=== PATIENT | female | born 1945 | race Caucasian/White ===

== ENCOUNTER 2017-03-19 16:15 | Emergency (ER) | payer MEDICARE ==
[~2017-03-19] VITALS: Wt 88.0 kg
[~2017-03-19 16:15] MED LIST: ASPIRIN81 M1 PO; BAYER ASPIRIN C81 MG PO; CIPRO500 MG PO; COZAAR50 M1 PO; Carafate1 GM/10 ML PO; GABAPENTIN600 MG PO; LANTUS100 U/ML SC; LOPRESSOR25 MG PO; METFORMIN1000 MG PO; PANTOPRAZOLE SO40 MG PO; PRANDIN2 MG PO; PROTONIX40 MG PO; RESTORIL30 M1 PO; TRAMADOL HCL50 MG PO; VICODIN 5-3001 EACH PO; VITAMIN B-12100 MCG PO; ZOFRAN4 MG PO
[2017-03-19] MEDS ORDERED: ELIQUIS5 M1 PO (16:32)
[2017-03-19] MEDS ORDERED: lantus insulin SQ (16:32)
== END 2017-03-19 17:53 | disposition home or self-care (01) ==
LOC: ED 16:15
DX: Z76.0 Encounter for issue of repeat prescription (principal); Z79.899 Other long term (current) drug therapy; Z88.6 Allergy status to analgesic agent

== ENCOUNTER 2017-08-31 14:54 | Inpatient (IN) | payer MEDICARE ==
[~2017-08-31] VITALS: Ht 149.9 cm; Wt 89.1 kg
--- NOTE | ~2017-08-31 | PR ---
[place], [place] PROGRESS NOTE NAME: HAYLEE EMMANUEL [facility] #: [id number] UNIT #: [id number] ROOM: 415 DOCTOR: ANASTASIYA YUEN MD BIRTHDATE: [birth year] DOS: 09/02/2017 SUBJECTIVE: The patient was seen at her bedside in the intensive care unit today 09/02/2017 for followup of her multivessel coronary artery disease with distal occlusive disease, chronic coronary ischemia, and permanent atrial fibrillation, status post ablation and pacemaker insertion. She had catheterizations in April 2016 and 07/10/2017. Both found distal 3-vessel coronary artery disease, which was felt best treated medically. She presented to the hospital on this occasion with weakness, urinary infection and hypotension. She has had intermittent chest discomfort during the hospitalization. Troponins did not elevate. PHYSICAL EXAMINATION: VITAL SIGNS: Today, her pulse is 75 and regular (paced rhythm). Blood pressure is 114/62. She is afebrile. NECK: Supple. She has no jugular distention. CHEST: Has decreased breath sounds at the bases, but otherwise clear. HEART: Has a regular rhythm. She has no gallops. She has a grade 3/6 systolic murmur along the left sternal border, it is low pitched and somewhat musical. She also has a grade 2/6 systolic ejection murmur along the left sternal border radiating toward the base. There are no diastolic murmurs. EXTREMITIES: Showed 1+ edema bilaterally. She has diuresed fairly well in the last 24 hours and is negative 2 liters fluid balance. LABORATORY DATA: Her hemoglobin is dropping. It was 9.1 on August 31, 8.8 on September 01 and 8.4 on September 02. Sodium is 138, potassium 4.5, BUN 48, creatinine 1.71. IMPRESSION: 1. Admission with weakness and urinary sepsis. 2. History of coronary artery disease. The patient has distal disease, which would not be amenable to revascularization and felt best treated medically. 3. Permanent atrial fibrillation. 4. Status post AV jennifer ablation and pacemaker placement for rate control. 5. Gastritis. 6. History of transient ischemic attack. 7. Type 2 diabetes mellitus. 8. Chronic renal insufficiency. 9. Anemia due to blood loss, complicated by anticoagulation therapy. PLAN: The patient should be on long-term anticoagulation therapy for stroke prophylaxis, especially given her history of transient ischemic attacks. I have discussed transfusion with the hospitalist service. I am concerned that if we do not transfuse her, she could become ischemic based on her anemia. On the other hand, I do want her to be started back on her blood thinner. We will be reinitiating Eliquis therapy and follow her carefully. I thank the hospitalist physicians for asking our advice regarding her care. [place], [place] PROGRESS NOTE NAME: HAYLEE EMMANUEL UNIT #: [id number] ROOM: [facility] DOCTOR: ANASTASIYA YUEN MD BIRTHDATE: [birth year] ANASTASIYA YUEN MD CM:PNTRANS [id number] ANASTASIYA YUEN MD 09/15/17 0704 interface
--- NOTE | ~2017-08-31 | PR ---
[place], [place] PROGRESS NOTE [id number] UN[facility] #: [id number] ROOM: 415 DOCTOR: ANASTASIYA YUEN MD BIRTHDATE: [birth year] DOS: 09/03/2017 SUBJECTIVE: The patient was seen at her bedside today, 09/03/2017 for Cardiology followup of her multivessel coronary artery disease with distal occlusive disease, chronic coronary ischemia and permanent atrial fibrillation status post ablation and pacemaker insertion. The patient was transferred out of the Intensive Care Unit. She was given a unit of packed cells yesterday and tells me that she does feel better today, although she states she got a migraine during the transfusion. She denies shortness of breath or chest discomfort. She has been started back on a direct oral anticoagulant for stroke prophylaxis. PHYSICAL EXAMINATION: VITAL SIGNS: Today, her pulse is 75 and regular, blood pressure 142/58. She is afebrile. She weighs 94.1 kg and has a body mass index of 41.9. HEENT: Normocephalic, atraumatic. Extraocular muscles are intact. NECK: Supple. She has no jugular distention. She has mild hepatojugular reflux. Carotids are full. LUNGS: Respirations are unlabored. She has decreased breath sounds at the bases, but her lungs are otherwise clear. HEART: Has a regular rhythm without gallops. She has a grade 3/6 systolic murmur along the left sternal border. It is low pitched and somewhat musical. She also has a grade 2/6 systolic ejection murmur along the left sternal border radiating towards the base. There are no diastolic murmurs. EXTREMITIES: Showed trace edema bilaterally. LABORATORY DATA: Hemoglobin today was 10.0 with a white count is 6700, platelet count 292,000. Sodium 138, potassium 3.7, BUN 30 and creatinine 1.06, which is a significant improvement from the previous day. IMPRESSION: 1. Admission with weakness and urinary sepsis. 2. History of coronary artery disease. The patient is noted to have multivessel distal disease, which is not amenable to revascularization and is being treated medically. 3. Permanent atrial fibrillation. 4. Status post AV jennifer ablation and pacemaker placement for rate control. 5. Gastritis. 6. History of transient ischemic attack. 7. Type 2 diabetes mellitus. 8. Chronic renal insufficiency. 9. Blood loss anemia, which is complicated by anticoagulation therapy. PLAN: The patient will be observed in the hospital for falling blood counts since she has been placed back on oral anticoagulant. We will continue to monitor her fluid status, but she does seem to be doing better from a cardiac standpoint. We thank the hospitalist physicians for asking our advice regarding her care. [place], [place] PROGRESS NOTE NAME: HAYLEE EMMANUEL UNIT #: [id number] ROOM: [facility] DOCTOR: ANASTASIYA YUEN MD BIRTHDATE: [birth year] ANASTASIYA YUEN MD CM:PNTRANS [phone] ANASTASIYA YUEN MD [id number]/03/172141 interface
--- NOTE | ~2017-08-31 | CON ---
[place], [place] REPORT OF CONSULTATION [id number] UN[facility] #: [id number] ROOM: [facility] DOCTOR: ANASTASIYA YUEN MD BIRTHDATE: [birth year] DOS: 09/01/2017 REASON FOR CONSULTATION: Chest pain. HISTORY OF PRESENT ILLNESS: The patient is a 72-year-old woman who has a complicated past history. She has a history of left breast cancer, treated with mastectomy and radiation therapy. She has permanent atrial fibrillation. She also is known to have coronary artery disease. She did undergo catheterization at [facility] in 04/2016, at which time she was found to have diffuse and distal coronary artery disease. It was felt that she was best treated medically. More recently, she was hospitalized at the [facility]. Her stress test showed apical ischemia and therefore, catheterization was repeated on 07/10/2017. Once again, she was found to have distal 3-vessel coronary artery disease and was treated medically. An echocardiogram at about that time showed normal left ventricular size and function with an ejection fraction between 65 and 70%. She had mitral annular calcification and mitral leaflet thickening along with aortic sclerosis. She had moderate tricuspid insufficiency with right ventricular systolic pressure of between 50 and 55 mmHg. She also had mild left atrial enlargement, mitral insufficiency was not quantified. Because of problems controlling her ventricular response to atrial fibrillation, she did undergo an AV jennifer ablation and placement of a permanent VVI pacemaker at the [facility] on 08/03/2017. She has been at a longterm since then. Last evening, she had to move her bowels. She states that the nursing staff was busy and therefore, she attempted to walk to the bathroom on her own. Just as she got to the bathroom, she lost control of her bowels and became very weak. She slid to the ground and may have lost consciousness. She was brought to the Emergency Room where she was found to have a significant urinary tract infection and hypotension. She was given fluids and admitted. Currently, she feels better. Serial troponin levels have been normal. She did have some chest discomfort, but this has resolved. She was dyspneic and nauseous, but again this has also resolved. PAST MEDICAL HISTORY: Includes: 1. History of left breast cancer status post mastectomy and left chest radiation. 2. Diabetes. 3. Permanent atrial fibrillation. 4. Possible transient ischemic attack. 5. Intermittent claudications. 6. History of esophagitis with esophageal ulcers. 7. Chronic renal insufficiency. 8. Catheterization, 04/30/2016, [facility], distal disease, medical therapy. 9. Pharmacologic myocardial perfusion study, 07/01/2017. Ejection fraction 51%, moderate apical ischemia. 10. Echocardiogram, 07/01/2017. Mitral annular calcification with mitral leaflet thickening, aortic sclerosis, moderate tricuspid insufficiency with [place], [place] REPORT OF CONSULTATION NAME: HAYLEE EMMANUEL UNIT #: [id number] ROOM: [facility] DOCTOR: ANASTASIYA YUEN MD BIRTHDATE: [birth year] right ventricular systolic pressure 53, mild left atrial enlargement, normal left ventricular size and function with ejection fraction 65-70%. 11. Cardiac catheterization [facility], 07/10/2017. A 3-vessel distal disease. Medical therapy advised. 12. Pacemaker for atrial fibrillation inserted 08/03/2017 followed by AV jennifer ablation for heart rate control. A Medtronic Advisa device was utilized in VVI mode. 13. Hospitalization with weakness, near syncope and UTI with probable urinary sepsis, 09/01/2017. MEDICATIONS PRIOR TO ADMISSION: Albuterol 2 puffs q.i.d., apixaban 5 mg b.i.d., bumetanide 1 mg b.i.d., vitamin D3 2000 units daily, duloxetine 30 mg daily, isosorbide mononitrate 30 mg daily, magnesium with aluminum (Gaviscon) 2 tablets at bedtime, magnesium oxide 40 mg b.i.d., metformin 1000 mg b.i.d., metoprolol tartrate 100 mg b.i.d., omeprazole 20 mg b.i.d., potassium chloride 10 mEq daily, ranolazine 500 mg b.i.d., Sucralfate 1 g q.i.d., NovoLog insulin by sliding scale a.c. and at bedtime and Lantus insulin 50 units subcutaneously daily at 7:40. ALLERGIES: The patient lists allergies to KHURRAM INHIBITORS, STATINS and HYDROCODONE. REVIEW OF SYSTEMS: The patient denies diplopia or loss of vision. She has had strokes in the past. She denies nausea or vomiting now, but had nausea earlier. She had shortness of breath earlier, but denies that now. She did have chest pain prior to admission, which she described as pressure. She denies orthopnea or PND. She denies fevers, chills, sweats or recent weight change. She denies hemoptysis or hematemesis. She has had dark stools. She denies blood in her urine. She has chronic peripheral edema. The remainder of the review of systems is negative except as noted above. SOCIAL HISTORY: The patient currently lives in a longterm. She does not smoke or consume alcohol. PHYSICAL EXAMINATION: GENERAL: The patient is an elderly white female who is awake, alert and oriented. She is overweight. VITAL SIGNS: Pulse is 75 and regular, blood pressure is 140/69. She is afebrile. HEENT: Normocephalic, atraumatic. Extraocular muscles are intact. Sclerae are clear. Pupils equal, round and react to light. The oral mucosa is moist. Tongue is midline. NECK: Supple. She has no jugular distention or hepatojugular reflux. Carotids are full. I heard no bruits. She had no neck or supraclavicular masses. LUNGS: Respirations are unlabored. Her chest has decreased breath sounds at the bases, but no wheezes or rales. She has no presacral edema. CARDIOVASCULAR: Her heart has a regular rhythm. She has a grade 3 holosystolic murmur along the left sternal border radiating towards the apex. It is low pitched and musical. She also has a grade 2/6 systolic ejection murmur along the left sternal border radiating toward the base. There are no diastolic [place], [place] REPORT OF CONSULTATION NAME: HAYLEE EMMANUEL UNIT #: [id number] ROOM: [facility] DOCTOR: ANASTASIYA YUEN MD BIRTHDATE: [birth year] murmurs. There is no S3 or S4. ABDOMEN: Soft and normally active. EXTREMITIES: Showed 1+ edema bilaterally. Pedal pulses are diminished in the feet. LABORATORY DATA: Her electrocardiogram shows 100% ventricular pacing with underlying rhythm, most likely atrial fibrillation. IMPRESSIONS: 1. Admission with weakness and probable urinary sepsis. 2. History of coronary artery disease. The patient has distal disease and is felt best treated medically based on a catheterization in 04/2016 and another catheterization in 06/2017. 3. Permanent atrial fibrillation. 4. Status post AV jennifer ablation and pacemaker placement for rate control. 5. History of transient ischemic attack. 6. Type 2 diabetes mellitus. 7. Chronic renal insufficiency. PLAN: For now, I would continue her beta sandro and increase her nitrates. There is nothing to be done about her coronary anatomy aside from continued medical therapy. Her urinary tract infection should be treated appropriately and this probably will help decrease her symptoms otherwise. No advanced cardiac evaluation such as echocardiogram, stress testing or catheterization are indicated at this time. We thank the hospitalist physicians for asking our advice regarding the patient's care. ANASTASIYA YUEN MD CM:CONSTR:REPORT OF CONSULTATION 1031 09/01/17 1102 interface
[~2017-08-31 14:54] MED LIST changes: +ELIQUIS5 M1 PO; +LANTUS SOL100 UNIT/1 SQ; -LANTUS100 U/ML SC; +lantus insulin SQ
[2017-08-31 15:10] VITALS: BP 104/52
[2017-08-31 15:19] LABS: BASO % 0.2 % (0.0-1.0); EOS % 0.3 % (1.0-4.0); HEMATOCRIT 31.4 % (37.0-47.0); HEMOGLOBIN 9.1 g/dl (12.0-16.0); LYMPH # 1.2 10*3/uL (1.3-4.4); LYMPH % 10.4 % (27.0-41.0); MEAN CORPUSCULAR HGB 24.3 pg (27.0-31.0); MONO # 0.7 10*3/uL (0.1-1.0); MONO % 6.1 % (3.0-9.0); NEUT # 9.4 10*3/uL (2.3-7.9); NEUT % 82.4 % (47.0-73.0); PLATELET COUNT AUTOMATED 365 10*3/uL (130-400); RED BLOOD COUNT 3.74 10*6/uL (4.10-5.10); WHITE BLOOD COUNT 11.4 10*3/uL (4.8-10.8)
[2017-08-31 15:28] LABS: ACT PARTIAL THROMBO TIME 33.1 SECONDS (20.8-31.5); INTERNATIONAL NORM RATIO 1.2 (2.0-3.5)
[2017-08-31 15:35] LABS: ALBUMIN 3.4 gm/dl (3.1-4.5); ALKALINE PHOSPHATASE 103 U/L (45-117); BUN 49 mg/dl (7-24); CHLORIDE 90 mmol/L (98-107); SGOT/AST 19 IU/L (3-35); SGPT/ALT 18 U/L (12-78); SODIUM 133 mmol/L (136-145)
[2017-08-31 15:51] LABS: POTASSIUM 5.9 mmol/L (3.5-5.1); TROPONIN I < 0.015 ng/ml (<0.045)
[2017-08-31 16:27] VITALS: BP 110/62
[2017-08-31 16:38] LABS: ABG BASE EXCESS 2.8 mmol/L (-2.0-2.0); ABG HCO3 28.7 mmol/l (22-26); ABG O2 SATURATION 95.4 % (95-97); ARTERIAL BLOOD GAS PH 7.338 (7.35-7.45); ARTERIAL BLOOD GAS PO2 79.1 mmHg (80-90)
[2017-08-31 17:29] LABS: BILIRUBIN 1+ (NEGATIVE); BLOOD NEGATIVE (NEGATIVE); CLARITY SL CLOUDY (CLEAR); COLOR YELLOW (YELLOW); GLUCOSE NEGATIVE (NEGATIVE); KETONE TRACE (NEGATIVE); LEUKO ESTERASE 3+ (NEGATIVE); NITRITE NEGATIVE (NEGATIVE); PH 6.5 (5.0-9.0)
[2017-08-31 17:43] LABS: BACTERIA 3+; EPITHELIAL CELLS TNTC; WBC TNTC wbc/hpf (0-5)
[2017-08-31 17:50] VITALS: BP 130/62
[2017-08-31 18:06] LABS: CKMB 0.6 ng/ml (0.5-3.6)
[2017-08-31 19:10] VITALS: BP 121/55
[2017-08-31] MEDS ORDERED: OMEPRAZOLE20 M2 PO (19:36)
[2017-08-31] MEDS ORDERED: ASPIR 8181 MG PO (19:37)
[2017-08-31] MEDS ORDERED: CARDIZEM LA300 MG PO (19:38)
[2017-08-31] MEDS ORDERED: LOPRESSOR100 M1 PO (19:38)
[2017-08-31] MEDS ORDERED: KLOR-CON 1010 ME1 PO (19:40)
[2017-08-31] MEDS ORDERED: ELIQUIS5 M1 PO (19:42)
[2017-08-31] MEDS ORDERED: RANEXA500 M1 PO (19:42)
[2017-08-31] MEDS ORDERED: DULOXETINE HCL30 MG PO (19:44)
[2017-08-31] MEDS ORDERED: IMDUR SA30 MG PO (19:45)
[2017-08-31] MEDS ORDERED: BUMETANIDE1 MG PO (19:46)
[2017-08-31] MEDS ORDERED: CARAFATE1 G1 PO (19:47)
[2017-08-31] MEDS ORDERED: VITAMIN D31000 UNI1 PO (19:47)
[2017-08-31] MEDS ORDERED: PROAIR HFA8.5 GM INH (19:48)
[2017-08-31] MEDS ORDERED: GAVISCON ES TA1 EACH PO (19:49)
[2017-08-31] MEDS ORDERED: MAGOX 400400 MG PO (19:51)
[2017-08-31] MEDS ORDERED: NOVOLOG FL100 UNIT/1 SC (19:53)
[2017-08-31 20:00] VITALS: BP 121/55
[2017-09-01] VITALS: BP 115/56
[2017-09-01 04:00] VITALS: BP 121/59
[2017-09-01 06:01] LABS: BASO # 0.1 10*3/uL (0.0-0.1); BASO % 0.5 % (0.0-1.0); EOS # 0.1 10*3/uL (0.0-0.4); EOS % 1.2 % (1.0-4.0); HEMATOCRIT 29.6 % (37.0-47.0); HEMOGLOBIN 8.8 g/dl (12.0-16.0); LYMPH # 1.5 10*3/uL (1.3-4.4); LYMPH % 14.2 % (27.0-41.0); MEAN CELL VOLUME 81.8 fl (81.0-99.0); MEAN CORPUSCULAR HGB 24.3 pg (27.0-31.0); MEAN CORPUSCULAR HGB CONC 29.7 g/dl (33.0-37.0); MEAN PLATELET VOLUME 10.7 fl (9.6-12.3); MONO # 1.1 10*3/uL (0.1-1.0); MONO % 10.9 % (3.0-9.0); NEUT # 7.6 10*3/uL (2.3-7.9); NEUT % 72.8 % (47.0-73.0); PLATELET COUNT AUTOMATED 338 10*3/uL (130-400); RED BLOOD COUNT 3.62 10*6/uL (4.10-5.10); RED CELL DISTRI WIDTH 23.1 % (0-14.5); WHITE BLOOD COUNT 10.5 10*3/uL (4.8-10.8)
[2017-09-01 06:31] LABS: ALBUMIN 3.1 gm/dl (3.1-4.5); CREATININE 2.72 mg/dL (0.55-1.02); TOTAL PROTEIN 6.7 gm/dL (6.4-8.2)
[2017-09-01 06:35] LABS: THYROID STIM HORMONE (HS) 2.47 uIU/ml (0.358-4.75)
[2017-09-01 06:37] LABS: ACT PARTIAL THROMBO TIME 30.6 SECONDS (20.8-31.5); INTERNATIONAL NORM RATIO 1.1 (2.0-3.5)
[2017-09-01 07:34] LABS: VITAMIN D, 25-HYDROXY 44.2 ng/mL (30-100)
[2017-09-01 08:00] VITALS: BP 140/69
[2017-09-01 12:00] VITALS: BP 122/64
[2017-09-01 16:00] VITALS: BP 120/59
[2017-09-01 20:00] VITALS: BP 116/54
[2017-09-02] VITALS (11 sets, daily range): BP systolic 105–133; BP diastolic 46–103
[2017-09-02 04:58] LABS: BASO % 0.3 % (0.0-1.0); EOS # 0.2 10*3/uL (0.0-0.4); EOS % 2.3 % (1.0-4.0); HEMATOCRIT 28.4 % (37.0-47.0); HEMOGLOBIN 8.4 g/dl (12.0-16.0); LYMPH # 1.4 10*3/uL (1.3-4.4); LYMPH % 15.9 % (27.0-41.0); MEAN CELL VOLUME 81.4 fl (81.0-99.0); MEAN CORPUSCULAR HGB 24.1 pg (27.0-31.0); MEAN CORPUSCULAR HGB CONC 29.6 g/dl (33.0-37.0); MEAN PLATELET VOLUME 10.8 fl (9.6-12.3); MONO # 0.9 10*3/uL (0.1-1.0); NEUT # 6.1 10*3/uL (2.3-7.9); PLATELET COUNT AUTOMATED 316 10*3/uL (130-400); RED BLOOD COUNT 3.49 10*6/uL (4.10-5.10); RED CELL DISTRI WIDTH 22.9 % (0-14.5); WHITE BLOOD COUNT 8.7 10*3/uL (4.8-10.8)
[2017-09-02 05:28] LABS: ALBUMIN 2.9 gm/dl (3.1-4.5); CREATININE 1.71 mg/dL (0.55-1.02); PHOSPHOROUS 3.4 mg/dL (2.5-4.9); POTASSIUM 4.5 mmol/L (3.5-5.1); TOTAL PROTEIN 6.3 gm/dL (6.4-8.2)
[2017-09-03] VITALS: BP 125/56
[2017-09-03 06:17] LABS: BASO # 0.1 10*3/uL (0.0-0.1); BASO % 0.7 % (0.0-1.0); EOS # 0.2 10*3/uL (0.0-0.4); EOS % 3.4 % (1.0-4.0); HEMATOCRIT 33.7 % (37.0-47.0); LYMPH # 1.4 10*3/uL (1.3-4.4); MEAN CORPUSCULAR HGB 24.6 pg (27.0-31.0); MEAN CORPUSCULAR HGB CONC 29.7 g/dl (33.0-37.0); MEAN PLATELET VOLUME 10.6 fl (9.6-12.3); MONO # 0.8 10*3/uL (0.1-1.0); MONO % 11.5 % (3.0-9.0); NEUT # 4.2 10*3/uL (2.3-7.9); NUCLEATED RED BLOOD CELL 0.3 % (0.0-0.0); PLATELET COUNT AUTOMATED 292 10*3/uL (130-400); RED BLOOD COUNT 4.06 10*6/uL (4.10-5.10); RED CELL DISTRI WIDTH 21.8 % (0-14.5); WHITE BLOOD COUNT 6.7 10*3/uL (4.8-10.8)
[2017-09-03 06:32] LABS: CHLORIDE 95 mmol/L (98-107); CREATININE 1.06 mg/dL (0.55-1.02); PHOSPHOROUS 3.5 mg/dL (2.5-4.9); POTASSIUM 3.7 mmol/L (3.5-5.1); SODIUM 138 mmol/L (136-145)
[2017-09-03 06:44] LABS: BUN 30 mg/dl (7-24)
[2017-09-03 08:00] VITALS: BP 136/64
[2017-09-03 12:00] VITALS: BP 121/70
[2017-09-03 16:00] VITALS: BP 142/80
[2017-09-03 20:00] VITALS: BP 142/58
[2017-09-04] VITALS: BP 133/63
[2017-09-04 06:16] LABS: BASO % 0.4 % (0.0-1.0); EOS # 0.2 10*3/uL (0.0-0.4); EOS % 2.7 % (1.0-4.0); HEMATOCRIT 34.9 % (37.0-47.0); HEMOGLOBIN 10.5 g/dl (12.0-16.0); LYMPH # 1.3 10*3/uL (1.3-4.4); MEAN CELL VOLUME 83.1 fl (81.0-99.0); MEAN CORPUSCULAR HGB CONC 30.1 g/dl (33.0-37.0); MEAN PLATELET VOLUME 10.9 fl (9.6-12.3); MONO # 0.8 10*3/uL (0.1-1.0); MONO % 10.8 % (3.0-9.0); NEUT # 4.6 10*3/uL (2.3-7.9); NEUT % 66.7 % (47.0-73.0); PLATELET COUNT AUTOMATED 298 10*3/uL (130-400); RED CELL DISTRI WIDTH 21.4 % (0-14.5); WHITE BLOOD COUNT 6.9 10*3/uL (4.8-10.8)
[2017-09-04 06:38] LABS: CHLORIDE 95 mmol/L (98-107); CREATININE 0.81 mg/dL (0.55-1.02); PHOSPHOROUS 3.1 mg/dL (2.5-4.9); POTASSIUM 3.4 mmol/L (3.5-5.1); SODIUM 139 mmol/L (136-145)
[2017-09-04 06:40] LABS: BUN 20 mg/dl (7-24)
[2017-09-04 08:00] VITALS: BP 157/85
[2017-09-04 12:00] VITALS: BP 120/58
[2017-09-04 16:00] VITALS: BP 138/66
[2017-09-04 20:00] VITALS: BP 103/87
[2017-09-05] VITALS: BP 133/52
[2017-09-05 06:20] LABS: BASO % 0.6 % (0.0-1.0); EOS # 0.1 10*3/uL (0.0-0.4); EOS % 2.1 % (1.0-4.0); HEMOGLOBIN 10.5 g/dl (12.0-16.0); LYMPH # 1.4 10*3/uL (1.3-4.4); LYMPH % 20.7 % (27.0-41.0); MEAN CELL VOLUME 84.5 fl (81.0-99.0); MEAN CORPUSCULAR HGB 25.4 pg (27.0-31.0); MEAN PLATELET VOLUME 10.4 fl (9.6-12.3); MONO # 0.7 10*3/uL (0.1-1.0); MONO % 10.3 % (3.0-9.0); NEUT # 4.5 10*3/uL (2.3-7.9); NEUT % 65.9 % (47.0-73.0); PLATELET COUNT AUTOMATED 278 10*3/uL (130-400); RED BLOOD COUNT 4.14 10*6/uL (4.10-5.10); WHITE BLOOD COUNT 6.8 10*3/uL (4.8-10.8)
[2017-09-05 06:51] LABS: BUN 18 mg/dl (7-24); CHLORIDE 96 mmol/L (98-107); CREATININE 0.73 mg/dL (0.55-1.02); POTASSIUM 3.5 mmol/L (3.5-5.1); SODIUM 139 mmol/L (136-145)
[2017-09-05 08:00] VITALS: BP 147/71
[2017-09-05 12:00] VITALS: BP 125/48
[2017-09-05 16:00] VITALS: BP 144/67
[2017-09-05 20:53] VITALS: BP 126/62
[2017-09-06] VITALS: BP 135/64
[2017-09-06 05:18] LABS: BASO % 0.4 % (0.0-1.0); EOS # 0.1 10*3/uL (0.0-0.4); EOS % 1.8 % (1.0-4.0); HEMATOCRIT 34.5 % (37.0-47.0); HEMOGLOBIN 10.2 g/dl (12.0-16.0); LYMPH # 1.5 10*3/uL (1.3-4.4); LYMPH % 21.7 % (27.0-41.0); MEAN CELL VOLUME 84.6 fl (81.0-99.0); MEAN CORPUSCULAR HGB CONC 29.6 g/dl (33.0-37.0); MONO # 0.8 10*3/uL (0.1-1.0); MONO % 11.8 % (3.0-9.0); NEUT # 4.5 10*3/uL (2.3-7.9); PLATELET COUNT AUTOMATED 255 10*3/uL (130-400); RED BLOOD COUNT 4.08 10*6/uL (4.10-5.10); RED CELL DISTRI WIDTH 22.5 % (0-14.5); WHITE BLOOD COUNT 7.1 10*3/uL (4.8-10.8)
[2017-09-06 05:40] LABS: BUN 17 mg/dl (7-24); CHLORIDE 93 mmol/L (98-107); CREATININE 0.77 mg/dL (0.55-1.02); POTASSIUM 3.4 mmol/L (3.5-5.1); SODIUM 140 mmol/L (136-145)
[2017-09-06 08:00] VITALS: BP 129/53
[2017-09-06 12:00] VITALS: BP 150/90
[2017-09-06 16:00] VITALS: BP 122/47
[2017-09-06 20:00] VITALS: BP 119/50
[2017-09-07] VITALS: BP 135/57
[2017-09-07 06:11] LABS: BUN 16 mg/dl (7-24); CHLORIDE 96 mmol/L (98-107); CREATININE 0.89 mg/dL (0.55-1.02); POTASSIUM 3.3 mmol/L (3.5-5.1); SODIUM 138 mmol/L (136-145)
[2017-09-07 08:00] VITALS: BP 126/59
[2017-09-07 12:00] VITALS: BP 118/52
[2017-09-07 16:00] VITALS: BP 126/57
[2017-09-07 20:00] VITALS: BP 125/53
[2017-09-08] VITALS: BP 120/66
[2017-09-08 06:12] LABS: BASO # 0.1 10*3/uL (0.0-0.1); BASO % 0.7 % (0.0-1.0); EOS # 0.2 10*3/uL (0.0-0.4); EOS % 2.2 % (1.0-4.0); HEMATOCRIT 35.4 % (37.0-47.0); HEMOGLOBIN 10.5 g/dl (12.0-16.0); LYMPH # 1.5 10*3/uL (1.3-4.4); LYMPH % 20.2 % (27.0-41.0); MEAN CELL VOLUME 84.1 fl (81.0-99.0); MEAN CORPUSCULAR HGB 24.9 pg (27.0-31.0); MEAN CORPUSCULAR HGB CONC 29.7 g/dl (33.0-37.0); MONO # 0.6 10*3/uL (0.1-1.0); MONO % 8.7 % (3.0-9.0); NEUT % 67.9 % (47.0-73.0); PLATELET COUNT AUTOMATED 229 10*3/uL (130-400); RED BLOOD COUNT 4.21 10*6/uL (4.10-5.10); RED CELL DISTRI WIDTH 22.6 % (0-14.5); WHITE BLOOD COUNT 7.4 10*3/uL (4.8-10.8)
[2017-09-08 06:23] LABS: ALKALINE PHOSPHATASE 99 U/L (45-117); BUN 16 mg/dl (7-24); CHLORIDE 97 mmol/L (98-107); CREATININE 0.85 mg/dL (0.55-1.02); POTASSIUM 3.2 mmol/L (3.5-5.1); SGOT/AST 21 IU/L (3-35); SGPT/ALT 21 U/L (12-78); SODIUM 139 mmol/L (136-145); TOTAL PROTEIN 6.6 gm/dL (6.4-8.2)
[2017-09-08 07:58] VITALS: BP 130/56
[2017-09-08 12:00] VITALS: BP 146/65
[2017-09-08 16:00] VITALS: BP 117/64
[2017-09-08 20:00] VITALS: BP 134/52
[2017-09-09] VITALS: BP 122/83
[2017-09-09 06:14] LABS: BUN 14 mg/dl (7-24); CHLORIDE 99 mmol/L (98-107); CREATININE 0.86 mg/dL (0.55-1.02); POTASSIUM 3.4 mmol/L (3.5-5.1); SODIUM 139 mmol/L (136-145)
[2017-09-09 08:00] VITALS: BP 138/60
[2017-09-09 12:00] VITALS: BP 124/55
[2017-09-09 16:00] VITALS: BP 109/54
[2017-09-09 20:40] VITALS: BP 132/58
[2017-09-10 00:27] VITALS: BP 124/45
[2017-09-10 05:15] LABS: BUN 14 mg/dl (7-24); CHLORIDE 100 mmol/L (98-107); POTASSIUM 3.6 mmol/L (3.5-5.1); SODIUM 139 mmol/L (136-145)
[2017-09-10 07:55] VITALS: BP 142/66
[2017-09-10 12:00] VITALS: BP 114/60
[2017-09-10] MEDS ORDERED: ACETAZOLAMIDE250 MG PO (13:21)
[2017-09-10] MEDS ORDERED: KLOR-CON M2020 ME1 PO (13:21)
[2017-09-10] MEDS ORDERED: IMDUR SA60 M1 PO (13:21)
[2017-09-10] MEDS ORDERED: Insulin Lispro, Reco SC (13:21)
== END 2017-09-10 16:03 | disposition other institution (70) | DRG 871 ==
LOC: ED 14:54 → EDHOLD 16:49 → ICCU 16:49 → 4E 16:49 → ICCU 18:12 → 4E 09-02 13:51
PROVIDERS: Emergency Medicine; Family Medicine; Internal Medicine; Internal Medicine Gastroenterology
PROC: 30233N1 Transfusion of Nonautologous Red Blood Cells into Peripheral Vein, Percutaneous Approach (ICD-10-PCS; principal; 2017-09-02)
DX: A41.9 Sepsis, unspecified organism (principal); I50.43 Acute on chronic combined systolic (congestive) and diastolic (congestive) heart failure; J96.21 Acute and chronic respiratory failure with hypoxia; N17.0 Acute kidney failure with tubular necrosis; E11.22 Type 2 diabetes mellitus with diabetic chronic kidney disease; E72.20 Disorder of urea cycle metabolism, unspecified; J18.9 Pneumonia, unspecified organism; E11.65 Type 2 diabetes mellitus with hyperglycemia; I13.0 Hypertensive heart and chronic kidney disease with heart failure and stage 1 through stage 4 chronic kidney disease, or unspecified chronic kidney disease; D62 Acute posthemorrhagic anemia; K29.71 Gastritis, unspecified, with bleeding; J96.22 Acute and chronic respiratory failure with hypercapnia; N39.0 Urinary tract infection, site not specified; J98.11 Atelectasis; Z68.41 Body mass index [BMI] 40.0-44.9, adult; I95.9 Hypotension, unspecified; K21.9 Gastro-esophageal reflux disease without esophagitis; F41.9 Anxiety disorder, unspecified; E87.8 Other disorders of electrolyte and fluid balance, not elsewhere classified; I25.10 Atherosclerotic heart disease of native coronary artery without angina pectoris; N18.9 Chronic kidney disease, unspecified; E66.01 Morbid (severe) obesity due to excess calories; E87.5 Hyperkalemia; I48.2 Chronic atrial fibrillation; B96.1 Klebsiella pneumoniae [K. pneumoniae] as the cause of diseases classified elsewhere; E87.6 Hypokalemia; Z88.6 Allergy status to analgesic agent; Z79.899 Other long term (current) drug therapy; Z90.49 Acquired absence of other specified parts of digestive tract; Z98.49 Cataract extraction status, unspecified eye; Z90.710 Acquired absence of both cervix and uterus; Z90.12 Acquired absence of left breast and nipple; Z91.81 History of falling; Z79.4 Long term (current) use of insulin; Z99.81 Dependence on supplemental oxygen

== ENCOUNTER 2017-12-10 15:44 | Emergency (ER) | payer MEDICARE ==
[~2017-12-10] VITALS: Ht 149.8 cm; Wt 81.6 kg
[~2017-12-10 15:44] MED LIST changes: +ACETAZOLAMIDE250 MG PO; +ASPIR 8181 MG PO; +BUMETANIDE1 MG PO; +CARAFATE1 G1 PO; +CARDIZEM LA300 MG PO; +DULOXETINE HCL30 MG PO; +GAVISCON ES TA1 EACH PO; +IMDUR SA30 MG PO; +IMDUR SA60 M1 PO; +Insulin Lispro, Reco SC; +KLOR-CON 1010 ME1 PO; +KLOR-CON M2020 ME1 PO; +LOPRESSOR100 M1 PO; +MAGOX 400400 MG PO; +NOVOLOG FL100 UNIT/1 SC; +OMEPRAZOLE20 M2 PO; +PROAIR HFA8.5 GM INH; +RANEXA500 M1 PO; +VITAMIN D31000 UNI1 PO
== END 2017-12-10 18:03 | disposition home or self-care (01) ==
LOC: ED 15:44
DX: M54.5 Low back pain (principal); I48.91 Unspecified atrial fibrillation; I12.9 Hypertensive chronic kidney disease with stage 1 through stage 4 chronic kidney disease, or unspecified chronic kidney disease; E11.22 Type 2 diabetes mellitus with diabetic chronic kidney disease; N18.9 Chronic kidney disease, unspecified; I25.10 Atherosclerotic heart disease of native coronary artery without angina pectoris; E66.01 Morbid (severe) obesity due to excess calories; E78.00 Pure hypercholesterolemia, unspecified; Z85.3 Personal history of malignant neoplasm of breast; Z90.49 Acquired absence of other specified parts of digestive tract; Z98.890 Other specified postprocedural states; Z95.0 Presence of cardiac pacemaker; Z90.710 Acquired absence of both cervix and uterus; Z68.41 Body mass index [BMI] 40.0-44.9, adult; Z79.899 Other long term (current) drug therapy; Z88.8 Allergy status to other drugs, medicaments and biological substances; Z88.5 Allergy status to narcotic agent; W19.XXXA Unspecified fall, initial encounter; Y93.89 Activity, other specified; Y92.009 Unspecified place in unspecified non-institutional (private) residence as the place of occurrence of the external cause; Y99.9 Unspecified external cause status

== ENCOUNTER → 2018-02-09 | Outpatient (CLI) | payer MEDICARE ==
[~2018-02-09] MED LIST changes: +FERROUS SULFAT324 M2 PO; +GLUCOPHAGE1000 MG PO; +LANTUS SOL100 UNIT/1 SC; +LASIX20 MG PO; +NEURONTIN600 MG PO; +NORCO 5-325 TA1 EACH PO; +Percocet 325 MG1 TAB PO
[2018-02-09 13:16] LABS: BASO # 0.1 10*3/uL (0.0-0.1); BASO % 0.8 % (0.0-1.0); EOS # 0.2 10*3/uL (0.0-0.4); EOS % 2.2 % (1.0-4.0); HEMATOCRIT 33.9 % (37.0-47.0); HEMOGLOBIN 9.5 g/dl (12.0-16.0); LYMPH # 1.3 10*3/uL (1.3-4.4); LYMPH % 16.9 % (27.0-41.0); MEAN CELL VOLUME 73.1 fl (81.0-99.0); MEAN CORPUSCULAR HGB 20.5 pg (27.0-31.0); MEAN PLATELET VOLUME 10.7 fl (9.6-12.3); MONO # 0.7 10*3/uL (0.1-1.0); MONO % 8.7 % (3.0-9.0); NEUT # 5.5 10*3/uL (2.3-7.9); NEUT % 71.1 % (47.0-73.0); PLATELET COUNT AUTOMATED 267 10*3/uL (130-400); RED BLOOD COUNT 4.64 10*6/uL (4.10-5.10); RED CELL DISTRI WIDTH 21.4 % (0-14.5); WHITE BLOOD COUNT 7.8 10*3/uL (4.8-10.8)
== END | disposition home or self-care (01) ==
LOC: LAB 12:46
PROVIDERS: Family Medicine
DX: I51.7 Cardiomegaly (principal); D50.0 Iron deficiency anemia secondary to blood loss (chronic)

== ENCOUNTER 2018-02-13 17:22 | Emergency (ER) | payer MEDICARE ==
[~2018-02-13] VITALS: Ht 149.8 cm; Wt 92.5 kg
[~2018-02-13 17:22] MED LIST changes: -FERROUS SULFAT324 M2 PO; -GLUCOPHAGE1000 MG PO; -LANTUS SOL100 UNIT/1 SC; -LASIX20 MG PO; -NEURONTIN600 MG PO; -NORCO 5-325 TA1 EACH PO; -Percocet 325 MG1 TAB PO
[2018-02-13] MEDS ORDERED: LANTUS SOL100 UNIT/1 SC (17:38)
[2018-02-13] MEDS ORDERED: NORCO 5-325 TA1 EACH PO (17:39)
[2018-02-13] MEDS ORDERED: GLUCOPHAGE1000 MG PO (17:42)
[2018-02-13] MEDS ORDERED: LASIX20 MG PO (17:51)
[2018-02-13] MEDS ORDERED: NEURONTIN600 MG PO (17:52)
[2018-02-13] MEDS ORDERED: PANTOPRAZOLE SO40 MG PO (17:53)
[2018-02-13] MEDS ORDERED: FERROUS SULFAT324 M2 PO (17:54)
[2018-02-13] MEDS ORDERED: Percocet 325 MG1 TAB PO (18:42)
== END 2018-02-13 18:45 | disposition home or self-care (01) ==
LOC: ED 17:22
DX: S42.291A Other displaced fracture of upper end of right humerus, initial encounter for closed fracture (principal); Z88.8 Allergy status to other drugs, medicaments and biological substances; Z79.899 Other long term (current) drug therapy; Z79.4 Long term (current) use of insulin; Z90.49 Acquired absence of other specified parts of digestive tract; Z90.710 Acquired absence of both cervix and uterus; Z95.0 Presence of cardiac pacemaker; W18.09XA Striking against other object with subsequent fall, initial encounter; Y93.01 Activity, walking, marching and hiking; Y92.009 Unspecified place in unspecified non-institutional (private) residence as the place of occurrence of the external cause

== ENCOUNTER 2018-09-23 15:07 | Inpatient (IN) | payer MEDICARE ==
[~2018-09-23] VITALS: Ht 149.9 cm; Wt 82.2 kg
--- NOTE | ~2018-09-23 | EKG ---
[place], [place] ELECTROCARDIOGRAM REPORT NAME: HAYLEE EMMANUEL UNIT #: [id number] ROOM: [facility] DOCTOR: CARLEY DRAFT REPORT BIRTHDATE: [birth year] [facility] Test Date: 2018-09-23 Test Time: 21:22:58 Pat Name: HAYLEE EMMANUEL Department: Room: [facility] Gender: F Electrician Manager: Ilya Crowe : 1945 Requested By: BRITTNEY WALTERS Order Number: [id number] Reading MD: Arelis Jean Baptiste MD Measurements Intervals [place] Rate: 75 P: -3 MI: 141 QRS: -78 QRSD: 182 T: 95 QT: 521 QTc: 582 Interpretive Statements Atrial-sensed ventricular-paced rhythm No further analysis attempted due to paced rhythm Electronically Signed On 09-24-2018 9:51:25 PST by Arelis Jean Baptiste MD CM:EKGRPT:ELECTROCARDIOGRAM REPORT [id number] BRITTNEY MCKEON DRAFT REPORT BRITTNEY WALTERS DO
--- NOTE | ~2018-09-23 | EKG ---
[place], [place] ELECTROCARDIOGRAM REPORT NAME: HAYLEE EMMANUEL UNIT #: [id number] ROOM: [facility] DOCTOR: CARLEY DRAFT REPORT BIRTHDATE: [birth year] [facility] Test Date: 2018-09-23 Test Time: 15:13:13 Pat Name: HAYLEE EMMANUEL Department: Room: [facility] Gender: F School Curriculum Developer: Ilya Crowe : 1945 Requested By: BRITTNEY WALTERS Order Number: [id number] Reading MD: Arelis Jean Baptiste MD Measurements Intervals Lane Rate: 75 P: 0 NV: 75 QRS: -78 QRSD: 170 T: 88 QT: 599 QTc: 670 Interpretive Statements Ventricular-paced rhythm No further analysis attempted due to paced rhythm Electronically Signed On 09-24-2018 9:49:51 PST by Arelis Jean Baptiste MD CM:EKGRPT:ELECTROCARDIOGRAM REPORT 1513 0949 BRITTNEY MCKEON DRAFT REPORT BRITTNEY WALTERS DO
--- NOTE | ~2018-09-23 | EKG ---
[place], [place] ELECTROCARDIOGRAM REPORT NAME: HAYLEE EMMANUEL UNIT #: [id number] ROOM: [facility] DOCTOR: CARLEY DRAFT REPORT BIRTHDATE: [birth year] [facility] Test Date: 2018-09-23 Test Time: 17:55:34 Pat Name: HAYLEE EMMANUEL Department: Room: [facility] Gender: F Lean Process Deployment Consultant: Ilya Crowe : 1945 Requested By: BRITTNEY WALTERS Order Number: [id number] Reading MD: Arelis Jean Baptiste MD Measurements Intervals [place] Rate: 75 P: 0 LA: 148 QRS: -69 QRSD: 181 T: 101 QT: 502 QTc: 561 Interpretive Statements Ventricular-paced rhythm No further analysis attempted due to paced rhythm Baseline wander in lead(s) V2 Electronically Signed On 09-24-2018 9:50:42 PST by Aerlis Jean Baptiste MD CM:EKGRPT:ELECTROCARDIOGRAM REPORT 1755 0950 BRITTNEY MCKEON DRAFT REPORT BRITTNEY WALTERS DO
[~2018-09-23 15:07] MED LIST changes: -BUMETANIDE1 MG PO; +BUMETANIDE2 MG PO; +FERRETTS325 M1 PO; +GLUCOPHAGE1000 MG PO; +LANTUS SOL100 UNIT/1 SC; +LASIX20 MG PO; +NEURONTIN600 MG PO; +NORCO 5-325 TA1 EACH PO; +Percocet 325 MG1 TAB PO
[2018-09-23 15:20] VITALS: BP 114/56
[2018-09-23 15:28] LABS: HEMATOCRIT 42.2 % (37.0-47.0); HEMOGLOBIN 14.5 g/dl (12.0-16.0); MEAN CELL VOLUME 86.7 fl (81.0-99.0); MEAN CORPUSCULAR HGB 29.8 pg (27.0-31.0); MEAN CORPUSCULAR HGB CONC 34.4 g/dl (33.0-37.0); MEAN PLATELET VOLUME 10.5 fl (9.6-12.3); PLATELET COUNT AUTOMATED 245 10*3/uL (130-400); RED BLOOD COUNT 4.87 10*6/uL (4.10-5.10); RED CELL DISTRI WIDTH 13.9 % (0-14.5); WHITE BLOOD COUNT 18.9 10*3/uL (4.8-10.8)
[2018-09-23 15:37] LABS: ACT PARTIAL THROMBO TIME 29.5 SECONDS (20.8-31.5); INTERNATIONAL NORM RATIO 1.1 (2.0-3.5)
[2018-09-23 15:56] LABS: ALBUMIN 3.4 gm/dl (3.1-4.5); CREATININE 1.52 mg/dL (0.55-1.02); POTASSIUM 2.5 mmol/L (3.5-5.1); TOTAL PROTEIN 7.8 gm/dL (6.4-8.2)
[2018-09-23 15:57] LABS: TROPONIN I 0.036 ng/ml (<0.045)
[2018-09-23 16:07] LABS: TOTAL CELLS COUNTED 100 #CELLS
[2018-09-23 16:08] LABS: MICROCYTOSIS SLIGHT; PLATELET SUFFICIENCY NORMAL (NORMAL)
[2018-09-23 16:15] LABS: BILIRUBIN NEGATIVE (NEGATIVE); BLOOD TRACE-INTACT (NEGATIVE); CLARITY SL CLOUDY (CLEAR); COLOR YELLOW (YELLOW); GLUCOSE NEGATIVE (NEGATIVE); KETONE NEGATIVE (NEGATIVE); LEUKO ESTERASE 3+ (NEGATIVE); NITRITE NEGATIVE (NEGATIVE); SPECIFIC GRAVITY <= 1.005 (1.005-1.030); UROBILINOGEN 0.2 E.U./dl (0.2-1.0)
[2018-09-23 16:22] LABS: BACTERIA 4+; RBC 0-2 rbc/hpf (0-2); WBC 21-30 wbc/hpf (0-5)
[2018-09-23 17:00] VITALS: BP 116/80
[2018-09-23 17:23] LABS: IRON 30 ug/dL (50-170); TOTAL IRON BINDING CAPACITY 343 ug/dl (250-450)
[2018-09-23 18:10] VITALS: BP 108/76
[2018-09-23] MEDS ORDERED: DEMADEX20 M1 PO (19:01)
[2018-09-23] MEDS ORDERED: NITROSTAT0.4 MG SL (19:02)
[2018-09-23] MEDS ORDERED: BRILINTA90 M1 PO (19:03)
[2018-09-23] MEDS ORDERED: Zaroxolyn,Diul2.5 MG PO (19:04)
[2018-09-23] MEDS ORDERED: VIRTUSSIN AC L118 ML PO (19:07)
[2018-09-23] MEDS ORDERED: RANEXA500 M1 PO (19:10)
[2018-09-23 20:00] VITALS: BP 108/48
[2018-09-24] VITALS: BP 100/49
[2018-09-24 00:56] LABS: CREATININE 1.27 mg/dL (0.55-1.02); POTASSIUM 2.7 mmol/L (3.5-5.1); TOTAL PROTEIN 6.9 gm/dL (6.4-8.2)
[2018-09-24 04:00] VITALS: BP 98/46
[2018-09-24 06:10] LABS: HEMATOCRIT 36.8 % (37.0-47.0); HEMOGLOBIN 12.5 g/dl (12.0-16.0); MEAN CELL VOLUME 88.7 fl (81.0-99.0); MEAN CORPUSCULAR HGB 30.1 pg (27.0-31.0); MEAN PLATELET VOLUME 11.1 fl (9.6-12.3); PLATELET COUNT AUTOMATED 198 10*3/uL (130-400); RED BLOOD COUNT 4.15 10*6/uL (4.10-5.10); RED CELL DISTRI WIDTH 14.2 % (0-14.5); WHITE BLOOD COUNT 13.2 10*3/uL (4.8-10.8)
[2018-09-24 06:23] LABS: ACT PARTIAL THROMBO TIME 29.5 SECONDS (20.8-31.5); INTERNATIONAL NORM RATIO 1.1 (2.0-3.5)
[2018-09-24 06:29] LABS: ALBUMIN 2.9 gm/dl (3.1-4.5); CREATININE 1.32 mg/dL (0.55-1.02); PHOSPHOROUS 6.4 mg/dL (2.5-4.9); POTASSIUM 2.7 mmol/L (3.5-5.1); TOTAL PROTEIN 6.8 gm/dL (6.4-8.2)
[2018-09-24 06:35] LABS: THYROID STIM HORMONE (HS) 0.516 uIU/ml (0.358-4.75)
[2018-09-24 07:05] LABS: TOTAL CELLS COUNTED 100 #CELLS
[2018-09-24 07:06] LABS: PLATELET SUFFICIENCY NORMAL (NORMAL); POLYCHROMASIA SLIGHT
[2018-09-24 08:00] VITALS: BP 108/60
[2018-09-24 08:48] LABS: VITAMIN D, 25-HYDROXY 14.5 ng/mL (30-100)
[2018-09-24 12:00] VITALS: BP 99/44
[2018-09-24 15:59] LABS: HEMATOCRIT 36.9 % (37.0-47.0); HEMOGLOBIN 12.6 g/dl (12.0-16.0); MEAN CELL VOLUME 89.8 fl (81.0-99.0); MEAN CORPUSCULAR HGB 30.7 pg (27.0-31.0); MEAN CORPUSCULAR HGB CONC 34.1 g/dl (33.0-37.0); MEAN PLATELET VOLUME 10.5 fl (9.6-12.3); PLATELET COUNT AUTOMATED 187 10*3/uL (130-400); RED BLOOD COUNT 4.11 10*6/uL (4.10-5.10); RED CELL DISTRI WIDTH 14.3 % (0-14.5); WHITE BLOOD COUNT 11.7 10*3/uL (4.8-10.8)
[2018-09-24 16:00] VITALS: BP 106/43
[2018-09-24 16:16] LABS: TOTAL CELLS COUNTED 100 #CELLS
[2018-09-24 16:17] LABS: PLATELET SUFFICIENCY NORMAL (NORMAL)
[2018-09-24 16:24] LABS: CREATININE 1.43 mg/dL (0.55-1.02); POTASSIUM 3.2 mmol/L (3.5-5.1)
[2018-09-24] MEDS ORDERED: ELIQUIS5 M1 PO (16:32)
[2018-09-24 20:00] VITALS: BP 117/48
[2018-09-25] VITALS: BP 118/51
[2018-09-25 04:00] VITALS: BP 118/50
[2018-09-25 06:03] LABS: HEMATOCRIT 33.9 % (37.0-47.0); HEMOGLOBIN 11.4 g/dl (12.0-16.0); MEAN CELL VOLUME 90.4 fl (81.0-99.0); MEAN CORPUSCULAR HGB 30.4 pg (27.0-31.0); MEAN CORPUSCULAR HGB CONC 33.6 g/dl (33.0-37.0); MEAN PLATELET VOLUME 11.3 fl (9.6-12.3); PLATELET COUNT AUTOMATED 180 10*3/uL (130-400); RED BLOOD COUNT 3.75 10*6/uL (4.10-5.10); RED CELL DISTRI WIDTH 14.2 % (0-14.5); WHITE BLOOD COUNT 12.5 10*3/uL (4.8-10.8)
[2018-09-25 06:04] LABS: ALBUMIN 2.7 gm/dl (3.1-4.5); CREATININE 1.32 mg/dL (0.55-1.02); POTASSIUM 3.5 mmol/L (3.5-5.1); TOTAL PROTEIN 6.7 gm/dL (6.4-8.2)
[2018-09-25 07:06] LABS: PLATELET SUFFICIENCY NORMAL (NORMAL); TOTAL CELLS COUNTED 100 #CELLS
[2018-09-25 08:00] VITALS: BP 115/47
[2018-09-25 12:00] VITALS: BP 106/46
[2018-09-25 16:00] VITALS: BP 102/40
[2018-09-25] MEDS ORDERED: GABAPENTIN600 MG PO (19:48)
[2018-09-25 20:00] VITALS: BP 123/42; BP 136/60
[2018-09-26] VITALS: BP 116/49
[2018-09-26 06:17] LABS: HEMATOCRIT 33.5 % (37.0-47.0); HEMOGLOBIN 10.7 g/dl (12.0-16.0); MEAN CELL VOLUME 93.1 fl (81.0-99.0); MEAN CORPUSCULAR HGB 29.7 pg (27.0-31.0); MEAN CORPUSCULAR HGB CONC 31.9 g/dl (33.0-37.0); PLATELET COUNT AUTOMATED 179 10*3/uL (130-400); RED CELL DISTRI WIDTH 14.5 % (0-14.5); WHITE BLOOD COUNT 11.3 10*3/uL (4.8-10.8)
[2018-09-26 06:18] LABS: CHLORIDE 103 mmol/L (98-107); POTASSIUM 4.3 mmol/L (3.5-5.1); SODIUM 139 mmol/L (136-145)
[2018-09-26 06:25] LABS: CREATININE 1.04 mg/dL (0.55-1.02)
[2018-09-26 06:30] LABS: BUN 47 mg/dl (7-24)
[2018-09-26 07:09] LABS: TOTAL CELLS COUNTED 100 #CELLS
[2018-09-26 07:10] LABS: PLATELET SUFFICIENCY NORMAL (NORMAL); TOXIC GRANULATION SLIGHT
[2018-09-26 09:00] VITALS: BP 127/52
[2018-09-26 12:00] VITALS: BP 109/36
[2018-09-26 16:00] VITALS: BP 113/45
[2018-09-26 20:00] VITALS: BP 132/66
[2018-09-27] VITALS: BP 111/53
[2018-09-27 06:43] LABS: BASO % 0.1 % (0.0-1.0); EOS % 0.1 % (1.0-4.0); HEMATOCRIT 34.5 % (37.0-47.0); LYMPH # 0.5 10*3/uL (1.3-4.4); LYMPH % 6.6 % (27.0-41.0); MEAN CELL VOLUME 93.8 fl (81.0-99.0); MEAN CORPUSCULAR HGB 29.9 pg (27.0-31.0); MEAN CORPUSCULAR HGB CONC 31.9 g/dl (33.0-37.0); MEAN PLATELET VOLUME 10.7 fl (9.6-12.3); MONO # 0.4 10*3/uL (0.1-1.0); MONO % 4.4 % (3.0-9.0); NEUT # 7.1 10*3/uL (2.3-7.9); NEUT % 86.4 % (47.0-73.0); PLATELET COUNT AUTOMATED 172 10*3/uL (130-400); RED BLOOD COUNT 3.68 10*6/uL (4.10-5.10); RED CELL DISTRI WIDTH 14.4 % (0-14.5); WHITE BLOOD COUNT 8.2 10*3/uL (4.8-10.8)
[2018-09-27 07:10] LABS: CHLORIDE 102 mmol/L (98-107); POTASSIUM 4.7 mmol/L (3.5-5.1); SODIUM 137 mmol/L (136-145)
[2018-09-27 07:11] LABS: CREATININE 0.94 mg/dL (0.55-1.02)
[2018-09-27 07:12] LABS: BUN 37 mg/dl (7-24)
[2018-09-27 09:00] VITALS: BP 120/46
[2018-09-27 12:00] VITALS: BP 125/59
[2018-09-27 16:00] VITALS: BP 123/53
[2018-09-27 20:00] VITALS: BP 119/47
[2018-09-28] VITALS: BP 121/43
[2018-09-28 06:57] LABS: HEMATOCRIT 34.5 % (37.0-47.0); HEMOGLOBIN 11.1 g/dl (12.0-16.0); MEAN CORPUSCULAR HGB 30.2 pg (27.0-31.0); MEAN CORPUSCULAR HGB CONC 32.2 g/dl (33.0-37.0); MEAN PLATELET VOLUME 10.6 fl (9.6-12.3); NUCLEATED RED BLOOD CELL 0.3 % (0.0-0.0); PLATELET COUNT AUTOMATED 169 10*3/uL (130-400); RED BLOOD COUNT 3.67 10*6/uL (4.10-5.10); RED CELL DISTRI WIDTH 14.6 % (0-14.5); WHITE BLOOD COUNT 7.4 10*3/uL (4.8-10.8)
[2018-09-28 07:24] LABS: BUN 35 mg/dl (7-24); CHLORIDE 103 mmol/L (98-107); POTASSIUM 5.3 mmol/L (3.5-5.1); SODIUM 137 mmol/L (136-145)
[2018-09-28 07:26] LABS: CREATININE 0.91 mg/dL (0.55-1.02)
[2018-09-28 07:30] LABS: PLATELET SUFFICIENCY NORMAL (NORMAL); TOTAL CELLS COUNTED 100 #CELLS
[2018-09-28 08:00] VITALS: BP 125/66
[2018-09-28] MEDS ORDERED: MUCINEX ER600 MG PO (10:46)
[2018-09-28] MEDS ORDERED: VITAMIN D32000 UNI1 PO (10:46)
[2018-09-28] MEDS ORDERED: NATURE'S BLEND F1 MG PO (10:46)
[2018-09-28] MEDS ORDERED: PREDNISONE10 MG PO (10:48)
[2018-09-28] MEDS ORDERED: ZITHROMAX250 MG PO (10:48)
[2018-09-28 12:00] VITALS: BP 109/77
== END 2018-09-28 14:10 | disposition home health service (06) | DRG 871 ==
LOC: ED 15:07 → ICCU 16:55 → 4E 16:55 → EDHOLD 16:55 → ICCU 17:25 → 4E 09-25 19:01
PROVIDERS: Emergency Medicine; Internal Medicine; Student in an Organized Health Care Education/Training Program; ADMIT Internal Medicine
DX: A41.9 Sepsis, unspecified organism (principal); J18.9 Pneumonia, unspecified organism; N17.0 Acute kidney failure with tubular necrosis; J44.1 Chronic obstructive pulmonary disease with (acute) exacerbation; N30.01 Acute cystitis with hematuria; E87.1 Hypo-osmolality and hyponatremia; E44.0 Moderate protein-calorie malnutrition; K92.2 Gastrointestinal hemorrhage, unspecified; I13.0 Hypertensive heart and chronic kidney disease with heart failure and stage 1 through stage 4 chronic kidney disease, or unspecified chronic kidney disease; J44.0 Chronic obstructive pulmonary disease with (acute) lower respiratory infection; E87.6 Hypokalemia; E87.8 Other disorders of electrolyte and fluid balance, not elsewhere classified; E83.41 Hypermagnesemia; K13.0 Diseases of lips; D64.9 Anemia, unspecified; E66.01 Morbid (severe) obesity due to excess calories; R26.2 Difficulty in walking, not elsewhere classified; I25.10 Atherosclerotic heart disease of native coronary artery without angina pectoris; E11.22 Type 2 diabetes mellitus with diabetic chronic kidney disease; R65.20 Severe sepsis without septic shock; E86.0 Dehydration; I50.9 Heart failure, unspecified; N18.3 Chronic kidney disease, stage 3 (moderate); I48.91 Unspecified atrial fibrillation; Z95.0 Presence of cardiac pacemaker; Z79.01 Long term (current) use of anticoagulants; Z88.8 Allergy status to other drugs, medicaments and biological substances; Z85.3 Personal history of malignant neoplasm of breast; Z99.81 Dependence on supplemental oxygen; Z90.49 Acquired absence of other specified parts of digestive tract; Z90.710 Acquired absence of both cervix and uterus; Z90.12 Acquired absence of left breast and nipple; Z80.9 Family history of malignant neoplasm, unspecified; Z68.33 Body mass index [BMI] 33.0-33.9, adult

== ENCOUNTER → 2018-12-22 | Outpatient (CLI) | payer MEDICARE ==
[~2018-12-22] MED LIST changes: +BRILINTA90 M1 PO; +DEMADEX20 M1 PO; +MUCINEX ER600 MG PO; +NATURE'S BLEND F1 MG PO; +NITROSTAT0.4 MG SL; +PREDNISONE10 MG PO; +VIRTUSSIN AC L118 ML PO; +VITAMIN D32000 UNI1 PO; +ZITHROMAX250 MG PO; +Zaroxolyn,Diul2.5 MG PO
== END | disposition home or self-care (01) ==
LOC: RESCLI 00:41
DX: E11.65 Type 2 diabetes mellitus with hyperglycemia (principal); E11.22 Type 2 diabetes mellitus with diabetic chronic kidney disease; N18.9 Chronic kidney disease, unspecified; I50.22 Chronic systolic (congestive) heart failure; K92.2 Gastrointestinal hemorrhage, unspecified; R06.02 Shortness of breath; G62.9 Polyneuropathy, unspecified; E61.1 Iron deficiency; I25.10 Atherosclerotic heart disease of native coronary artery without angina pectoris; I48.2 Chronic atrial fibrillation; E55.9 Vitamin D deficiency, unspecified

== ENCOUNTER → 2019-01-05 | Outpatient (CLI) | payer MEDICARE ==
[2019-01-05 16:28] LABS: HEMATOCRIT 46.6 % (37.0-47.0); HEMOGLOBIN 15.6 g/dl (12.0-16.0); MEAN CELL VOLUME 90.3 fl (81.0-99.0); MEAN CORPUSCULAR HGB 30.2 pg (27.0-31.0); MEAN CORPUSCULAR HGB CONC 33.5 g/dl (33.0-37.0); MEAN PLATELET VOLUME 11.3 fl (9.6-12.3); RED BLOOD COUNT 5.16 10*6/uL (4.10-5.10); WHITE BLOOD COUNT 8.4 10*3/uL (4.8-10.8)
[2019-01-05 16:51] LABS: ALBUMIN 3.4 gm/dl (3.1-4.5); CREATININE 1.23 mg/dL (0.55-1.02); POTASSIUM 3.2 mmol/L (3.5-5.1); TOTAL PROTEIN 7.3 gm/dL (6.4-8.2)
== END | disposition home or self-care (01) ==
LOC: LAB 15:55
PROVIDERS: Family Medicine
DX: E55.9 Vitamin D deficiency, unspecified (principal); E10.9 Type 1 diabetes mellitus without complications; I25.10 Atherosclerotic heart disease of native coronary artery without angina pectoris; I48.91 Unspecified atrial fibrillation; R60.0 Localized edema

== ENCOUNTER → 2019-01-17 | Outpatient (CLI) | payer MEDICARE | END | disposition home or self-care (01) | LOC: RAD 15:11 | DX: S62.663A Nondisplaced fracture of distal phalanx of left middle finger, initial encounter for closed fracture (principal); R07.81 Pleurodynia; X58.XXXA Exposure to other specified factors, initial encounter; Y93.89 Activity, other specified; Y92.89 Other specified places as the place of occurrence of the external cause; Y99.8 Other external cause status ==

== ENCOUNTER → 2019-02-22 | Outpatient (CLI) | payer MEDICARE | END | disposition home or self-care (01) | LOC: RESCLI 00:58 | DX: E11.65 Type 2 diabetes mellitus with hyperglycemia (principal); I50.22 Chronic systolic (congestive) heart failure; K92.2 Gastrointestinal hemorrhage, unspecified; G62.9 Polyneuropathy, unspecified; E61.1 Iron deficiency; I25.10 Atherosclerotic heart disease of native coronary artery without angina pectoris; I48.2 Chronic atrial fibrillation; E55.9 Vitamin D deficiency, unspecified; E11.22 Type 2 diabetes mellitus with diabetic chronic kidney disease; N18.9 Chronic kidney disease, unspecified; Z79.899 Other long term (current) drug therapy ==

== ENCOUNTER → 2019-05-02 | Outpatient (CLI) | payer MEDICARE ==
[2019-05-02 13:46] LABS: HEMATOCRIT 44.8 % (37.0-47.0); HEMOGLOBIN 15.2 g/dl (12.0-16.0); MEAN CELL VOLUME 88.2 fl (81.0-99.0); MEAN CORPUSCULAR HGB 29.9 pg (27.0-31.0); MEAN CORPUSCULAR HGB CONC 33.9 g/dl (33.0-37.0); MEAN PLATELET VOLUME 11.1 fl (9.6-12.3); RED BLOOD COUNT 5.08 10*6/uL (4.10-5.10); RED CELL DISTRI WIDTH 13.1 % (0-14.5); WHITE BLOOD COUNT 10.1 10*3/uL (4.8-10.8)
[2019-05-02 13:47] LABS: ALBUMIN 3.7 gm/dl (3.1-4.5); CREATININE 1.62 mg/dL (0.55-1.02); POTASSIUM 3.6 mmol/L (3.5-5.1)
== END | disposition home or self-care (01) ==
LOC: LAB 12:55
PROVIDERS: Family Medicine
DX: E11.9 Type 2 diabetes mellitus without complications (principal); E55.9 Vitamin D deficiency, unspecified; I48.91 Unspecified atrial fibrillation

== ENCOUNTER → 2019-05-03 | Outpatient (CLI) | payer MEDICARE | END | disposition home or self-care (01) | LOC: RESCLI 01:47 | DX: E11.65 Type 2 diabetes mellitus with hyperglycemia (principal); K92.2 Gastrointestinal hemorrhage, unspecified; R06.02 Shortness of breath; G62.9 Polyneuropathy, unspecified; E61.1 Iron deficiency; I25.10 Atherosclerotic heart disease of native coronary artery without angina pectoris; E55.9 Vitamin D deficiency, unspecified; I48.20 Chronic atrial fibrillation, unspecified; I50.22 Chronic systolic (congestive) heart failure; Z79.899 Other long term (current) drug therapy ==

== ENCOUNTER → 2019-05-26 | Outpatient (CLI) | payer MEDICARE | END | disposition home or self-care (01) | LOC: RAD 12:02 | DX: I51.7 Cardiomegaly (principal); E11.9 Type 2 diabetes mellitus without complications; Z87.891 Personal history of nicotine dependence ==

== ENCOUNTER → 2019-08-16 | Outpatient (CLI) | payer MEDICARE | END | disposition home or self-care (01) | LOC: RESCLI 02:27 | DX: E11.65 Type 2 diabetes mellitus with hyperglycemia (principal); E11.22 Type 2 diabetes mellitus with diabetic chronic kidney disease; I50.22 Chronic systolic (congestive) heart failure; K92.2 Gastrointestinal hemorrhage, unspecified; G62.9 Polyneuropathy, unspecified; E61.1 Iron deficiency; I25.10 Atherosclerotic heart disease of native coronary artery without angina pectoris; E55.9 Vitamin D deficiency, unspecified; I48.20 Chronic atrial fibrillation, unspecified; N18.9 Chronic kidney disease, unspecified; R06.02 Shortness of breath; Z79.4 Long term (current) use of insulin; Z79.899 Other long term (current) drug therapy; Z90.89 Acquired absence of other organs; Z90.49 Acquired absence of other specified parts of digestive tract; Z90.710 Acquired absence of both cervix and uterus; Z88.8 Allergy status to other drugs, medicaments and biological substances ==

== ENCOUNTER 2019-08-26 11:34 | Emergency (ER) | payer MEDICARE ==
[~2019-08-26] VITALS: Ht 149.8 cm; Wt 88.5 kg
== END 2019-08-26 15:32 | disposition home or self-care (01) ==
LOC: ED 11:34
DX: S93.401A Sprain of unspecified ligament of right ankle, initial encounter (principal); M79.671 Pain in right foot; I25.10 Atherosclerotic heart disease of native coronary artery without angina pectoris; E11.9 Type 2 diabetes mellitus without complications; I50.9 Heart failure, unspecified; I48.91 Unspecified atrial fibrillation; Z79.899 Other long term (current) drug therapy; Z88.8 Allergy status to other drugs, medicaments and biological substances; Z88.6 Allergy status to analgesic agent; X58.XXXA Exposure to other specified factors, initial encounter; Y93.89 Activity, other specified; Y92.89 Other specified places as the place of occurrence of the external cause; Y99.8 Other external cause status

== ENCOUNTER → 2019-09-28 | Outpatient (CLI) | payer MEDICARE ==
[2019-09-28 14:34] LABS: BASO # 0.1 10*3/uL (0.0-0.1); BASO % 0.7 % (0.0-1.0); EOS # 0.3 10*3/uL (0.0-0.4); EOS % 2.6 % (1.0-4.0); HEMATOCRIT 45.7 % (37.0-47.0); HEMOGLOBIN 14.9 g/dl (12.0-16.0); LYMPH # 2.5 10*3/uL (1.3-4.4); LYMPH % 23.3 % (27.0-41.0); MEAN CELL VOLUME 84.2 fl (81.0-99.0); MEAN CORPUSCULAR HGB 27.4 pg (27.0-31.0); MEAN CORPUSCULAR HGB CONC 32.6 g/dl (33.0-37.0); MEAN PLATELET VOLUME 10.9 fl (9.6-12.3); MONO % 9.5 % (3.0-9.0); NEUT # 6.8 10*3/uL (2.3-7.9); PLATELET COUNT AUTOMATED 305 10*3/uL (130-400); RED BLOOD COUNT 5.43 10*6/uL (4.10-5.10); RED CELL DISTRI WIDTH 14.5 % (0-14.5); WHITE BLOOD COUNT 10.8 10*3/uL (4.8-10.8)
[2019-09-28 15:04] LABS: ALBUMIN 3.4 gm/dl (3.1-4.5); CREATININE 1.49 mg/dL (0.55-1.02); PHOSPHOROUS 2.4 mg/dL (2.5-4.9); POTASSIUM 2.9 mmol/L (3.5-5.1); TOTAL PROTEIN 7.8 gm/dL (6.4-8.2)
== END | disposition home or self-care (01) ==
LOC: LAB 12:58 → US 13:00
PROVIDERS: Internal Medicine Nephrology
DX: N18.3 Chronic kidney disease, stage 3 (moderate) (principal)

== ENCOUNTER → 2020-01-30 | Outpatient (CLI) | payer MEDICARE ==
[2020-01-30 11:06] LABS: BILIRUBIN 1+ (NEGATIVE); BLOOD NEGATIVE (NEGATIVE); CLARITY SL CLOUDY (CLEAR); COLOR YELLOW (YELLOW); GLUCOSE NEGATIVE (NEGATIVE); KETONE NEGATIVE (NEGATIVE)
[2020-01-30 11:07] LABS: BACTERIA 4+; EPITHELIAL CELLS 16-20; LEUKO ESTERASE 2+ (NEGATIVE); NITRITE NEGATIVE (NEGATIVE); UROBILINOGEN 0.2 E.U./dl (0.2-1.0)
[2020-01-30 11:10] LABS: ALBUMIN 3.3 gm/dl (3.1-4.5); CREATININE 1.99 mg/dL (0.55-1.02); POTASSIUM 2.9 mmol/L (3.5-5.1)
== END | disposition home or self-care (01) ==
LOC: LAB 10:11
PROVIDERS: Internal Medicine Nephrology
DX: N39.0 Urinary tract infection, site not specified (principal); N18.3 Chronic kidney disease, stage 3 (moderate)

== ENCOUNTER → 2020-02-04 | Outpatient (CLI) | payer MEDICARE ==
[~2020-02-04] MED LIST changes: +COLCHICINE0.6 M2 PO; +HUMALOG100 UNIT/1 SQ; +POTASSIUM CHLO20 ME3 PO; +TORSEMIDE20 MG PO
[2020-02-04 12:45] LABS: BASO % 0.3 % (0.0-1.0); EOS # 0.1 10*3/uL (0.0-0.4); HEMATOCRIT 39.4 % (37.0-47.0); LYMPH # 1.6 10*3/uL (1.3-4.4); LYMPH % 15.4 % (27.0-41.0); MEAN CELL VOLUME 84.2 fl (81.0-99.0); MEAN CORPUSCULAR HGB 27.4 pg (27.0-31.0); MEAN CORPUSCULAR HGB CONC 32.5 g/dl (33.0-37.0); MEAN PLATELET VOLUME 10.8 fl (9.6-12.3); MONO % 9.2 % (3.0-9.0); NEUT # 7.8 10*3/uL (2.3-7.9); NEUT % 73.4 % (47.0-73.0); PLATELET COUNT AUTOMATED 282 10*3/uL (130-400); RED BLOOD COUNT 4.68 10*6/uL (4.10-5.10); RED CELL DISTRI WIDTH 16.1 % (0-14.5); WHITE BLOOD COUNT 10.6 10*3/uL (4.8-10.8)
[2020-02-04 13:03] LABS: ALBUMIN 2.7 gm/dl (3.1-4.5); CREATININE 2.62 mg/dL (0.55-1.02); POTASSIUM 3.9 mmol/L (3.5-5.1); TOTAL PROTEIN 7.2 gm/dL (6.4-8.2)
== END | disposition home or self-care (01) ==
LOC: LAB 12:07
PROVIDERS: Family Medicine; Podiatrist Foot & Ankle Surgery
DX: M10.071 Idiopathic gout, right ankle and foot (principal); E87.1 Hypo-osmolality and hyponatremia; E87.6 Hypokalemia

== ENCOUNTER → 2020-02-06 | Outpatient (CLI) | payer MEDICARE | END | disposition home or self-care (01) | LOC: RAD 13:49 | DX: J44.9 Chronic obstructive pulmonary disease, unspecified (principal); Z95.828 Presence of other vascular implants and grafts; Z95.0 Presence of cardiac pacemaker ==

== ENCOUNTER 2020-02-10 19:35 | Inpatient (IN) | payer MEDICARE ==
[~2020-02-10] VITALS: Ht 149.8 cm; Wt 88.5 kg
[~2020-02-10 19:35] MED LIST changes: -COLCHICINE0.6 M2 PO; -HUMALOG100 UNIT/1 SQ; -POTASSIUM CHLO20 ME3 PO; -TORSEMIDE20 MG PO
[2020-02-10 19:54] VITALS: BP 106/49
[2020-02-10 20:07] LABS: BASO % 0.4 % (0.0-1.0); EOS # 0.1 10*3/uL (0.0-0.4); EOS % 1.9 % (1.0-4.0); HEMATOCRIT 34.3 % (37.0-47.0); LYMPH # 1.8 10*3/uL (1.3-4.4); LYMPH % 24.3 % (27.0-41.0); MEAN CELL VOLUME 84.1 fl (81.0-99.0); MEAN CORPUSCULAR HGB 27.2 pg (27.0-31.0); MEAN CORPUSCULAR HGB CONC 32.4 g/dl (33.0-37.0); MEAN PLATELET VOLUME 9.8 fl (9.6-12.3); MONO # 0.8 10*3/uL (0.1-1.0); MONO % 10.9 % (3.0-9.0); NEUT # 4.5 10*3/uL (2.3-7.9); NEUT % 61.4 % (47.0-73.0); PLATELET COUNT AUTOMATED 280 10*3/uL (130-400); RED BLOOD COUNT 4.08 10*6/uL (4.10-5.10); RED CELL DISTRI WIDTH 15.9 % (0-14.5); WHITE BLOOD COUNT 7.3 10*3/uL (4.8-10.8)
[2020-02-10 20:18] LABS: ACT PARTIAL THROMBO TIME 28.3 SECONDS (20.0-32.1)
[2020-02-10 20:23] LABS: ALBUMIN 2.7 gm/dl (3.1-4.5); ALKALINE PHOSPHATASE 94 U/L (45-117); BUN 67 mg/dl (7-24); CHLORIDE 99 mmol/L (98-107); CREATININE 2.16 mg/dL (0.55-1.02); POTASSIUM 4.7 mmol/L (3.5-5.1); SGOT/AST 22 IU/L (3-35); SGPT/ALT 25 U/L (12-78); SODIUM 133 mmol/L (136-145); TOTAL PROTEIN 6.5 gm/dL (6.4-8.2)
[2020-02-10 20:24] LABS: TROPONIN I < 0.015 ng/ml (<0.045)
--- NOTE | 2020-02-10 20:49 | NUR ---
In to see pt.Pt states she is doing ok and does not need anything at this time.
[2020-02-10 22:05] VITALS: BP 110/58
--- NOTE | 2020-02-10 23:33 | NUR ---
Pt denines open wounds at this time.Pt is alert and orientated.
[2020-02-11] VITALS (9 sets, daily range): BP systolic 100–166; BP diastolic 47–68
--- NOTE | 2020-02-11 | NUR ---
Pt placed on 2 liters when she sleeps.Pt states she does not need anything at this time.
--- NOTE | 2020-02-11 00:51 | NUR ---
SPOKE WITH DR. JAY REGARDING ORDERS. ORDERS STATED PUT IN. DR. JAY STATES SHE WILL PUT THE REMAINDER IN WHEN SHE ARRIVES IN TY MORNING.
--- NOTE | 2020-02-11 01:46 | NUR ---
Pt still currently sleeping at this time.
--- NOTE | 2020-02-11 02:18 | NUR ---
AMBULATED TO BATHROOM. GAIT STEADY. VOIDED. AMBULATED BACK TO BED. POSITIONED FOR COMFORT. TELE MONITOR INTACT. CALL LIGHT IN REACH. NO SIGN OF DISTRESS.
--- NOTE | 2020-02-11 04:00 | NUR ---
Pt still currently sleeping at this time,
--- NOTE | 2020-02-11 05:14 | NUR ---
Pt still sleeping at this time.
--- NOTE | 2020-02-11 06:45 | NUR ---
In to see pt at this time.Pt states she is doing ok and just wants to sleep at this time.
--- NOTE | 2020-02-11 08:02 | NUR ---
Sbar faxed at this time.
--- NOTE | 2020-02-11 08:40 | NUR ---
Spoke with Cassandra rodriguez ok for pt to be brought up at this time and has no questions on sbar at this time.
--- NOTE | 2020-02-11 09:00 | NUR ---
Pt taken to floor on mointor with nursing supervisior at this time.
--- NOTE | 2020-02-11 09:45 | NUR ---
Time: 944 A 74 year old FEMALE admitted to 4E under services of MELISSA ORELLANA MD. Pt. arrived via bed from ER. Chief complaint: CHF EXACERBABTION. OG KERN
[2020-02-11] MEDS ORDERED: TORSEMIDE20 MG PO (09:50)
[2020-02-11] MEDS ORDERED: GAVISCON ES TA1 EACH PO (09:53)
[2020-02-11] MEDS ORDERED: POTASSIUM CHLO20 ME3 PO (09:55)
[2020-02-11] MEDS ORDERED: COLCHICINE0.6 M2 PO (09:57)
[2020-02-11] MEDS ORDERED: HUMALOG100 UNIT/1 SQ (10:02)
--- NOTE | 2020-02-11 11:54 | NUR ---
SPOKE TO DR. JYA VIA TELEPHONE. SHE INSTRUCTED ME WITH PHYSICIAN ORDERS TO CONTINUE HOME MEDICATIONS, IMPLEMENT ORDER SET SLIDING SCALE, ECHOCARDIOGRAM FOR THURSDAY, CHANGE LASIX TO 60 MG IV DAILY, AND CONSULT DR. CAVANAUGH FOR CHF.
--- NOTE | 2020-02-11 19:10 | NUR ---
REPORT RECEIVED FROM OG RAMIREZ. PT LYING IN BED WATCHING TV. VOICES NO COMPLAINTS, CALL LIGHT IN REACH
--- NOTE | 2020-02-11 21:30 | NUR ---
PT WATCHING TV AT THIS TIME. NO S/S OF DISTRESS NOTED. CALL LIGHT IN REACH
--- NOTE | 2020-02-11 23:45 | NUR ---
PT ASLEEP AT THIS TIME
[2020-02-12] VITALS: BP 113/41
[2020-02-12 08:00] VITALS: BP 108/57
--- NOTE | 2020-02-12 09:47 | NUR ---
IN TO SEE PT.
[2020-02-12 10:07] LABS: ALBUMIN 3.1 gm/dl (3.1-4.5); CREATININE 1.49 mg/dL (0.55-1.02); POTASSIUM 4.4 mmol/L (3.5-5.1); TOTAL PROTEIN 7.4 gm/dL (6.4-8.2)
[2020-02-12 12:00] VITALS: BP 113/52
[2020-02-12 16:00] VITALS: BP 100/54
--- NOTE | 2020-02-12 17:25 | NUR ---
CONTINUES TO VOICE NO COMPLAINTS. CALL LIGHT IN REACH/ENCOURAGED FOR HELP.
--- NOTE | 2020-02-12 19:45 | NUR ---
PT AWAKE IN BED. DENIES ANY NEEDS AT PRESENT TIME. WILL MONITOR. CALL LIGHT IN REACH.
[2020-02-12 20:00] VITALS: BP 98/44
[2020-02-12 20:30] VITALS: BP 106/50
[2020-02-13] VITALS: BP 102/46
--- NOTE | 2020-02-13 03:22 | NUR ---
PT ASLEEP IN BED. RESPIRATIONS EASY. NO S/S OF DISTRESS NOTED. WILL MONITOR. CALL LIGHT IN REACH.
--- NOTE | 2020-02-13 07:42 | NUR ---
Discussed with Dr. Chen whether the patient was supposed to be inpatient vs observation. New orders received to make patient inpatient. report clerk notified.
[2020-02-13 08:00] VITALS: BP 110/52
--- NOTE | 2020-02-13 09:00 | NUR ---
Trouble Shooting Mechanic in to talk to patient. Patient states lives at home with her . There are 0 steps in the home. Physician: Dr. Cade Morrow Pharmacy: [facility] health services: none Patient's level of ADLs: MINIMAL ASSIST Patient has working utilities: yes DME: walker, cane, O2 @ 2L nc at HS and during the day if pulse ox < 90%, pulse ox, nebulizer, O2 supplier [facility] Follow-up physician's appointment after d/c: she prefers to make her own follow up appt after discharge Does patient want to access PORTAL?: no Discharge plan discussed with patient. She lives at home with her . She is independent in her ADLs and ambulates with either a cane or a walker. Discussed home health care services and she denies any home needs at this time. When medically stable she will be discharged to home. She states her son, Hitesh, will provide transportation on discharge. BLANCA PORTILLO
[2020-02-13 12:00] VITALS: BP 127/44
[2020-02-13 16:00] VITALS: BP 108/48
[2020-02-13 20:00] VITALS: BP 114/47
[2020-02-14] VITALS: BP 115/41
[2020-02-14 07:26] LABS: POTASSIUM 4.4 mmol/L (3.5-5.1)
[2020-02-14 07:27] LABS: CREATININE 1.45 mg/dL (0.55-1.02)
[2020-02-14 08:00] VITALS: BP 110/52
--- NOTE | 2020-02-14 09:00 | NUR ---
Shift chart check completed.
--- NOTE | 2020-02-14 09:00 | NUR ---
YELLING OUT AGAIN. ENCOURAGED CALL LIGHT. DENIES NEEDS AT THIS TIME.
--- NOTE | 2020-02-14 09:55 | NUR ---
Discharge instructions reviewed with patient/family. Patient receptive and verbalizes understanding. Follow-up care arranged. Written instructions given to patient/family. OSWALDO JACOBSON
[2020-02-14 12:00] VITALS: BP 102/45
--- NOTE | 2020-02-14 12:40 | NUR ---
IV D/C AT THIS TIME, CATHETER TIP INTACT.
== END 2020-02-14 12:40 | disposition home or self-care (01) | DRG 292 ==
LOC: ED 19:35 → EDHOLD 21:21 → 4E 21:21
PROVIDERS: Internal Medicine Cardiovascular Disease; Nurse Practitioner Family; ADMIT Internal Medicine
DX: I50.31 Acute diastolic (congestive) heart failure (principal); I48.21 Permanent atrial fibrillation; J96.10 Chronic respiratory failure, unspecified whether with hypoxia or hypercapnia; E44.1 Mild protein-calorie malnutrition; J44.9 Chronic obstructive pulmonary disease, unspecified; I25.10 Atherosclerotic heart disease of native coronary artery without angina pectoris; N18.3 Chronic kidney disease, stage 3 (moderate); E11.22 Type 2 diabetes mellitus with diabetic chronic kidney disease; F32.9 Major depressive disorder, single episode, unspecified; K58.9 Irritable bowel syndrome, unspecified; M54.5 Low back pain; G89.29 Other chronic pain; Z85.3 Personal history of malignant neoplasm of breast; Z95.5 Presence of coronary angioplasty implant and graft; Z79.4 Long term (current) use of insulin; Z88.8 Allergy status to other drugs, medicaments and biological substances; Z88.6 Allergy status to analgesic agent; Z90.49 Acquired absence of other specified parts of digestive tract; Z90.710 Acquired absence of both cervix and uterus; Z95.0 Presence of cardiac pacemaker; Z90.12 Acquired absence of left breast and nipple; Z98.49 Cataract extraction status, unspecified eye; Z82.49 Family history of ischemic heart disease and other diseases of the circulatory system; Z80.8 Family history of malignant neoplasm of other organs or systems

== ENCOUNTER → 2020-06-20 | Outpatient (CLI) | payer MEDICARE ==
[~2020-06-20] MED LIST changes: +COLCHICINE0.6 M2 PO; +HUMALOG100 UNIT/1 SQ; +POTASSIUM CHLO20 ME3 PO; +TORSEMIDE20 MG PO
[2020-06-20 11:38] LABS: BASO % 0.5 % (0.0-1.0); EOS # 0.1 10*3/uL (0.0-0.4); EOS % 1.8 % (1.0-4.0); HEMATOCRIT 32.4 % (37.0-47.0); LYMPH # 0.9 10*3/uL (1.3-4.4); LYMPH % 12.6 % (27.0-41.0); MEAN CELL VOLUME 75.9 fl (81.0-99.0); MEAN CORPUSCULAR HGB 22.5 pg (27.0-31.0); MEAN CORPUSCULAR HGB CONC 29.6 g/dl (33.0-37.0); MEAN PLATELET VOLUME 10.2 fl (9.6-12.3); MONO # 0.6 10*3/uL (0.1-1.0); NEUT # 5.6 10*3/uL (2.3-7.9); NEUT % 76.6 % (47.0-73.0); PLATELET COUNT AUTOMATED 332 10*3/uL (130-400); RED BLOOD COUNT 4.27 10*6/uL (4.10-5.10); RED CELL DISTRI WIDTH 18.5 % (0-14.5); WHITE BLOOD COUNT 7.4 10*3/uL (4.8-10.8)
[2020-06-20 11:53] LABS: ALBUMIN 3.2 gm/dl (3.1-4.5); ALKALINE PHOSPHATASE 114 U/L (45-117); BUN 21 mg/dl (7-24); CHLORIDE 101 mmol/L (98-107); CHOLESTEROL 124 mg/dL (<200); CREATININE 1.07 mg/dL (0.55-1.02); HDL CHOLESTEROL 56 mg/dl (40-60); LDL CHOLESTEROL 43 mg/dL (9-159); POTASSIUM 3.4 mmol/L (3.5-5.1); SGOT/AST 20 IU/L (3-35); SGPT/ALT 16 U/L (12-78); SODIUM 136 mmol/L (136-145); TOTAL PROTEIN 7.7 gm/dL (6.4-8.2); TRIGLYCERIDES 124 mg/dl (<150); VLDL CHOLESTEROL 25 mg/dL (6-40)
== END | disposition home or self-care (01) ==
LOC: LAB 11:17
PROVIDERS: ATTEND Family Medicine
DX: D64.9 Anemia, unspecified (principal); K92.2 Gastrointestinal hemorrhage, unspecified; E78.00 Pure hypercholesterolemia, unspecified; G90.09 Other idiopathic peripheral autonomic neuropathy; U07.1 COVID-19

== ENCOUNTER → 2020-06-30 | Outpatient (CLI) | payer MEDICARE | END | disposition home or self-care (01) | LOC: RAD 11:19 | PROVIDERS: ATTEND Family Medicine | DX: M25.531 Pain in right wrist (principal) ==

== ENCOUNTER → 2020-08-15 | Outpatient (CLI) | payer MEDICARE | END | disposition home or self-care (01) | LOC: RESCLI 08:21 | PROVIDERS: ATTEND Student in an Organized Health Care Education/Training Program | DX: E11.65 Type 2 diabetes mellitus with hyperglycemia (principal); I50.22 Chronic systolic (congestive) heart failure; E55.9 Vitamin D deficiency, unspecified; N18.9 Chronic kidney disease, unspecified; G62.9 Polyneuropathy, unspecified; I48.91 Unspecified atrial fibrillation; I48.20 Chronic atrial fibrillation, unspecified; Z79.899 Other long term (current) drug therapy; Z79.82 Long term (current) use of aspirin ==

== ENCOUNTER → 2020-09-04 | Outpatient (CLI) | payer MEDICARE | END | disposition home or self-care (01) | LOC: RAD 14:54 | PROVIDERS: ATTEND Family Medicine | DX: I51.7 Cardiomegaly (principal); Z95.0 Presence of cardiac pacemaker ==

== ENCOUNTER → 2020-09-21 | Outpatient (CLI) | payer MEDICARE ==
[2020-09-21 17:38] LABS: HEMATOCRIT 44.7 % (37.0-47.0); MEAN CELL VOLUME 80.1 fl (81.0-99.0); MEAN CORPUSCULAR HGB 24.4 pg (27.0-31.0); MEAN CORPUSCULAR HGB CONC 30.4 g/dl (33.0-37.0); MEAN PLATELET VOLUME 10.5 fl (9.6-12.3); RED BLOOD COUNT 5.58 10*6/uL (4.10-5.10); RED CELL DISTRI WIDTH 21.7 % (0-14.5)
[2020-09-21 18:07] LABS: ALBUMIN 3.3 gm/dl (3.1-4.5); CREATININE 1.29 mg/dL (0.55-1.02); POTASSIUM 4.2 mmol/L (3.5-5.1); TOTAL PROTEIN 7.8 gm/dL (6.4-8.2)
== END | disposition home or self-care (01) ==
LOC: LAB 16:55
PROVIDERS: ATTEND Family Medicine
DX: I50.9 Heart failure, unspecified (principal); R53.83 Other fatigue

== ENCOUNTER → 2020-09-28 | Outpatient (CLI) | payer MEDICARE ==
[2020-09-28 17:08] LABS: CREATININE 1.29 mg/dL (0.55-1.02); POTASSIUM 4.3 mmol/L (3.5-5.1)
== END | disposition home or self-care (01) ==
LOC: LAB 15:50
PROVIDERS: ATTEND Family Medicine
DX: R60.0 Localized edema (principal)

== ENCOUNTER → 2020-10-18 | Outpatient (CLI) | payer MEDICARE ==
[2020-10-18 17:10] LABS: ALBUMIN 3.3 gm/dl (3.1-4.5); CREATININE 1.27 mg/dL (0.55-1.02); POTASSIUM 4.2 mmol/L (3.5-5.1)
== END | disposition home or self-care (01) ==
LOC: LAB 16:27
PROVIDERS: ATTEND Family Medicine
DX: N18.30 Chronic kidney disease, stage 3 unspecified (principal)

== ENCOUNTER → 2020-11-30 | Outpatient (CLI) | payer MEDICARE ==
[2020-11-30 15:24] LABS: ALBUMIN 3.5 gm/dl (3.1-4.5); CREATININE 1.37 mg/dL (0.55-1.02); POTASSIUM 3.7 mmol/L (3.5-5.1)
== END | disposition home or self-care (01) ==
LOC: LAB 14:03
PROVIDERS: ATTEND Family Medicine
DX: N18.4 Chronic kidney disease, stage 4 (severe) (principal)

== ENCOUNTER → 2020-12-13 | Outpatient (CLI) | payer MEDICARE ==
[2020-12-13 10:23] LABS: ALBUMIN 3.3 gm/dl (3.1-4.5); CREATININE 1.38 mg/dL (0.55-1.02); POTASSIUM 3.7 mmol/L (3.5-5.1)
== END | disposition home or self-care (01) ==
LOC: LAB 09:16
PROVIDERS: ATTEND Family Medicine
DX: N18.30 Chronic kidney disease, stage 3 unspecified (principal)

== ENCOUNTER → 2021-02-11 | Outpatient (CLI) | payer MEDICARE ==
[2021-02-11 12:29] LABS: ALBUMIN 3.3 gm/dl (3.1-4.5); CREATININE 1.31 mg/dL (0.55-1.02); POTASSIUM 4.1 mmol/L (3.5-5.1); TOTAL PROTEIN 7.9 gm/dL (6.4-8.2)
[2021-02-12 05:10] LABS: RHEUMATOID ARTHRITIS FACTOR <10.0 IU/mL (0.0-13.9)
== END | disposition home or self-care (01) ==
LOC: LAB 11:51
PROVIDERS: ATTEND Family Medicine
DX: I25.10 Atherosclerotic heart disease of native coronary artery without angina pectoris (principal); E78.00 Pure hypercholesterolemia, unspecified; M26.629 Arthralgia of temporomandibular joint, unspecified side; M25.50 Pain in unspecified joint; M79.10 Myalgia, unspecified site; Z95.0 Presence of cardiac pacemaker

== ENCOUNTER → 2021-03-14 | Outpatient (CLI) | payer MEDICARE ==
[2021-03-14 16:04] LABS: HEMATOCRIT 45.2 % (37.0-47.0); MEAN CELL VOLUME 86.3 fl (81.0-99.0); MEAN CORPUSCULAR HGB 28.1 pg (27.0-31.0); MEAN CORPUSCULAR HGB CONC 32.5 g/dl (33.0-37.0); MEAN PLATELET VOLUME 10.3 fl (9.6-12.3); RED BLOOD COUNT 5.24 10*6/uL (4.10-5.10); RED CELL DISTRI WIDTH 17.2 % (0-14.5); WHITE BLOOD COUNT 8.3 10*3/uL (4.8-10.8)
[2021-03-14 16:22] LABS: ALBUMIN 3.3 gm/dl (3.1-4.5); CREATININE 1.25 mg/dL (0.55-1.02); POTASSIUM 3.7 mmol/L (3.5-5.1)
== END | disposition home or self-care (01) ==
LOC: LAB 00:35 → RESCLI 00:35
PROVIDERS: ATTEND Family Medicine
DX: R07.2 Precordial pain (principal); E11.65 Type 2 diabetes mellitus with hyperglycemia; E79.0 Hyperuricemia without signs of inflammatory arthritis and tophaceous disease; E55.9 Vitamin D deficiency, unspecified; Z79.4 Long term (current) use of insulin; Z79.899 Other long term (current) drug therapy; Z79.82 Long term (current) use of aspirin

== ENCOUNTER → 2021-03-27 | Outpatient (CLI) | payer MEDICARE ==
[2021-03-27 11:47] LABS: URIC ACID 11.9 mg/dL (2.6-6.0)
[2021-03-27 11:51] LABS: THYROID STIM HORMONE (HS) 3.28 uIU/ml (0.358-4.75)
== END | disposition home or self-care (01) ==
LOC: LAB 10:58
PROVIDERS: Social Worker Clinical; ATTEND Family Medicine
DX: E11.65 Type 2 diabetes mellitus with hyperglycemia (principal); E55.9 Vitamin D deficiency, unspecified; E79.0 Hyperuricemia without signs of inflammatory arthritis and tophaceous disease; Z79.899 Other long term (current) drug therapy

== ENCOUNTER 2021-05-31 11:49 | Emergency (ER) | payer MEDICARE ==
[~2021-05-31] VITALS: Ht 149.8 cm; Wt 87.5 kg
[2021-05-31 14:15] LABS: BASO % 0.2 % (0.0-1.0); EOS # 0.1 10*3/uL (0.0-0.4); EOS % 1.7 % (1.0-4.0); HEMATOCRIT 41.5 % (37.0-47.0); LYMPH # 1.2 10*3/uL (1.3-4.4); LYMPH % 13.9 % (27.0-41.0); MEAN CELL VOLUME 91.8 fl (81.0-99.0); MEAN CORPUSCULAR HGB 29.4 pg (27.0-31.0); MEAN PLATELET VOLUME 10.6 fl (9.6-12.3); MONO # 0.8 10*3/uL (0.1-1.0); MONO % 9.4 % (3.0-9.0); NEUT # 6.2 10*3/uL (2.3-7.9); NEUT % 74.2 % (47.0-73.0); PLATELET COUNT AUTOMATED 221 10*3/uL (130-400); RED BLOOD COUNT 4.52 10*6/uL (4.10-5.10); RED CELL DISTRI WIDTH 14.6 % (0-14.5); WHITE BLOOD COUNT 8.4 10*3/uL (4.8-10.8)
[2021-05-31 14:46] LABS: ALBUMIN 3.2 gm/dl (3.1-4.5); CREATININE 1.22 mg/dL (0.55-1.02); POTASSIUM 4.6 mmol/L (3.5-5.1); TOTAL PROTEIN 7.3 gm/dL (6.4-8.2)
[2021-05-31] MEDS ORDERED: VIBRAMYCIN100 MG PO (17:26)
[2021-05-31] MEDS ORDERED: PREDNISONE20 M1 PO (17:26)
== END 2021-05-31 17:57 | disposition home or self-care (01) ==
LOC: ED 11:49
PROVIDERS: Physician Assistant
DX: L03.116 Cellulitis of left lower limb (principal); Z88.8 Allergy status to other drugs, medicaments and biological substances; Z79.899 Other long term (current) drug therapy

== ENCOUNTER → 2021-11-26 | Outpatient (CLI) | payer MEDICARE ==
[~2021-11-26] MED LIST changes: +PREDNISONE20 M1 PO; +VIBRAMYCIN100 MG PO
[2021-11-26 11:36] LABS: BASO % 0.5 % (0.0-1.0); EOS # 0.2 10*3/uL (0.0-0.4); EOS % 2.2 % (1.0-4.0); HEMATOCRIT 45.5 % (37.0-47.0); LYMPH # 1.5 10*3/uL (1.3-4.4); LYMPH % 17.7 % (27.0-41.0); MEAN CELL VOLUME 87.5 fl (81.0-99.0); MEAN CORPUSCULAR HGB 28.7 pg (27.0-31.0); MEAN CORPUSCULAR HGB CONC 32.7 g/dl (33.0-37.0); MEAN PLATELET VOLUME 9.9 fl (9.6-12.3); MONO # 0.7 10*3/uL (0.1-1.0); MONO % 8.2 % (3.0-9.0); NEUT % 70.5 % (47.0-73.0); PLATELET COUNT AUTOMATED 256 10*3/uL (130-400); RED CELL DISTRI WIDTH 14.4 % (0-14.5); WHITE BLOOD COUNT 8.6 10*3/uL (4.8-10.8)
[2021-11-26 11:51] LABS: BILIRUBIN Negative (Negative); BLOOD Trace-Intact (Negative); CLARITY Cloudy (Clear); COLOR Yellow (Yellow); GLUCOSE Negative (Negative); KETONE Negative (Negative); LEUKO ESTERASE 3+ (Negative); NITRITE Negative (Negative); SPECIFIC GRAVITY 1.015 (1.001-1.030); UROBILINOGEN 0.2 E.U./dl (0.0-1.0)
[2021-11-26 11:52] LABS: CREATININE 1.45 mg/dL (0.55-1.02); POTASSIUM 4.6 mmol/L (3.5-5.1); URIC ACID 10.7 mg/dL (2.6-6.0)
[2021-11-26 12:13] LABS: URINE CREATININE RANDOM 63.8 mg/dL
[2021-11-26 12:16] LABS: BACTERIA 3+; WBC TNTC wbc/hpf (0-5)
[2021-11-26 12:49] LABS: VITAMIN D, 25-HYDROXY 44.1 ng/mL (30-100)
== END | disposition home or self-care (01) ==
LOC: LAB 11:08
PROVIDERS: ATTEND Internal Medicine Nephrology
DX: I13.11 Hypertensive heart and chronic kidney disease without heart failure, with stage 5 chronic kidney disease, or end stage renal disease (principal); E11.29 Type 2 diabetes mellitus with other diabetic kidney complication; N18.4 Chronic kidney disease, stage 4 (severe); E87.70 Fluid overload, unspecified; E55.9 Vitamin D deficiency, unspecified

== ENCOUNTER → 2021-12-04 | Outpatient (CLI) | payer MEDICARE ==
[2021-12-04 17:35] LABS: CREATININE 1.55 mg/dL (0.55-1.02); TOTAL PROTEIN 7.6 gm/dL (6.4-8.2)
[2021-12-05 08:08] LABS: HEPATITIS B SURFACE AG Negative (Negative); RHEUMATOID FACTOR <10.0 IU/mL (<14.0)
== END | disposition home or self-care (01) ==
LOC: LAB 16:47
PROVIDERS: ATTEND Family Medicine
DX: M79.10 Myalgia, unspecified site (principal); M25.50 Pain in unspecified joint; R53.83 Other fatigue

== ENCOUNTER → 2021-12-06 | Outpatient (CLI) | payer MEDICARE | END | disposition home or self-care (01) | LOC: RAD 15:28 | PROVIDERS: ATTEND Family Medicine | DX: M85.431 Solitary bone cyst, right ulna and radius (principal); M25.531 Pain in right wrist ==

== ENCOUNTER → 2022-01-16 | Outpatient (CLI) | payer MEDICARE ==
[2022-01-16 17:19] LABS: CREATININE 1.67 mg/dL (0.55-1.02); POTASSIUM 4.7 mmol/L (3.5-5.1)
== END | disposition home or self-care (01) ==
LOC: LAB 16:49
PROVIDERS: ATTEND Family Medicine
DX: R60.9 Edema, unspecified (principal)

== ENCOUNTER 2022-02-17 14:01 | Inpatient (IN) | payer MEDICARE ==
[~2022-02-17] VITALS: Ht 149.9 cm; Wt 83.7 kg
[2022-02-17 14:24] VITALS: BP 119/52
[2022-02-17 15:19] LABS: BASO # 0.1 10*3/uL (0.0-0.1); BASO % 0.5 % (0.0-1.0); EOS # 0.1 10*3/uL (0.0-0.4); EOS % 0.7 % (1.0-4.0); LYMPH # 1.2 10*3/uL (1.3-4.4); LYMPH % 10.9 % (27.0-41.0); MEAN CELL VOLUME 91.6 fl (81.0-99.0); MEAN CORPUSCULAR HGB 29.9 pg (27.0-31.0); MEAN CORPUSCULAR HGB CONC 32.7 g/dl (33.0-37.0); MEAN PLATELET VOLUME 10.5 fl (9.6-12.3); MONO # 1.1 10*3/uL (0.1-1.0); MONO % 9.6 % (3.0-9.0); NEUT # 8.8 10*3/uL (2.3-7.9); NEUT % 77.6 % (47.0-73.0); PLATELET COUNT AUTOMATED 250 10*3/uL (130-400); RED BLOOD COUNT 4.91 10*6/uL (4.10-5.10); RED CELL DISTRI WIDTH 14.3 % (0-14.5); WHITE BLOOD COUNT 11.4 10*3/uL (4.8-10.8)
[2022-02-17 15:38] LABS: ACT PARTIAL THROMBO TIME 34.7 SECONDS (20.0-32.1); CREATININE 1.73 mg/dL (0.55-1.02); INTERNATIONAL NORM RATIO 1.2 (2.0-3.5); POTASSIUM 4.4 mmol/L (3.5-5.1); TOTAL PROTEIN 7.5 gm/dL (6.4-8.2)
[2022-02-17 16:48] LABS: BILIRUBIN Negative (Negative); BLOOD Negative (Negative); CLARITY Clear (Clear); COLOR Yellow (Yellow); GLUCOSE Negative (Negative); KETONE Negative (Negative); LEUKO ESTERASE Negative (Negative); NITRITE Negative (Negative); PH 6.5 (4.5-8.0); UROBILINOGEN 0.2 E.U./dl (0.0-1.0)
[2022-02-17 16:56] LABS: BACTERIA 2+
[2022-02-17 18:22] VITALS: BP 137/57
[2022-02-17] MEDS ORDERED: ALDACTONE25 MG PO (18:47)
[2022-02-17] MEDS ORDERED: FUROSEMIDE40 MG PO (18:48)
[2022-02-17] MEDS ORDERED: CARVEDILOL3.125 MG PO (18:53)
[2022-02-17] MEDS ORDERED: FAMOTIDINE20 M1 PO (18:56)
[2022-02-17] MEDS ORDERED: HUMALOG100 UNIT/2 SQ (19:20)
[2022-02-17] MEDS ORDERED: LANTUS SOL100 UNIT/1 SC (19:20)
[2022-02-17 20:00] VITALS: BP 116/47
[2022-02-18] VITALS: BP 125/55
[2022-02-18 08:00] VITALS: BP 122/55
[2022-02-18 12:00] VITALS: BP 112/51
[2022-02-18 16:00] VITALS: BP 126/80
[2022-02-18 20:00] VITALS: BP 133/55
[2022-02-19] VITALS: BP 133/56
[2022-02-19 08:00] VITALS: BP 122/56
[2022-02-19 12:00] VITALS: BP 117/50
[2022-02-19 16:00] VITALS: BP 109/42
[2022-02-19 20:00] VITALS: BP 125/54
[2022-02-20] VITALS: BP 118/46
[2022-02-20 08:00] VITALS: BP 126/68
[2022-02-20 12:00] VITALS: BP 133/81
[2022-02-20 16:00] VITALS: BP 111/90
== END 2022-02-20 21:10 | DRG 554 ==
LOC: ED 14:01 → 4E 16:13 → EDHOLD 16:13 → 4E 17:44
PROVIDERS: Emergency Medicine; ADMIT Internal Medicine; ATTEND Internal Medicine
DX: M17.0 Bilateral primary osteoarthritis of knee (principal); I48.21 Permanent atrial fibrillation; I50.32 Chronic diastolic (congestive) heart failure; R26.2 Difficulty in walking, not elsewhere classified; J44.9 Chronic obstructive pulmonary disease, unspecified; N18.30 Chronic kidney disease, stage 3 unspecified; M25.561 Pain in right knee; Z20.822 Contact with and (suspected) exposure to COVID-19; I25.119 Atherosclerotic heart disease of native coronary artery with unspecified angina pectoris; N18.32 Chronic kidney disease, stage 3b; G89.29 Other chronic pain; E11.22 Type 2 diabetes mellitus with diabetic chronic kidney disease; M54.9 Dorsalgia, unspecified; Z85.3 Personal history of malignant neoplasm of breast; Z88.8 Allergy status to other drugs, medicaments and biological substances; Z88.6 Allergy status to analgesic agent; Z90.49 Acquired absence of other specified parts of digestive tract; Z98.49 Cataract extraction status, unspecified eye; Z90.710 Acquired absence of both cervix and uterus; Z90.12 Acquired absence of left breast and nipple; Z95.0 Presence of cardiac pacemaker; Z79.82 Long term (current) use of aspirin; Z79.899 Other long term (current) drug therapy; Z79.01 Long term (current) use of anticoagulants

== ENCOUNTER → 2022-03-10 | Outpatient (CLI) | payer MEDICARE ==
[~2022-03-10] MED LIST changes: +ALDACTONE25 MG PO; +CARVEDILOL3.125 MG PO; +FAMOTIDINE20 M1 PO; +FUROSEMIDE40 MG PO; +HUMALOG100 UNIT/2 SQ
== END | disposition home or self-care (01) ==
LOC: RAD 12:44
PROVIDERS: ATTEND Orthopaedic Surgery
DX: M17.0 Bilateral primary osteoarthritis of knee (principal); M25.862 Other specified joint disorders, left knee; M25.861 Other specified joint disorders, right knee; M25.462 Effusion, left knee; M25.461 Effusion, right knee

== ENCOUNTER → 2022-03-20 | Outpatient (CLI) | payer MEDICARE ==
[2022-03-20 16:49] LABS: HEMATOCRIT 41.7 % (37.0-47.0); MEAN CORPUSCULAR HGB 29.3 pg (27.0-31.0); MEAN CORPUSCULAR HGB CONC 32.1 g/dl (33.0-37.0); MEAN PLATELET VOLUME 9.7 fl (9.6-12.3); RED BLOOD COUNT 4.58 10*6/uL (4.10-5.10); RED CELL DISTRI WIDTH 15.1 % (0-14.5); WHITE BLOOD COUNT 8.2 10*3/uL (4.8-10.8)
[2022-03-20 17:07] LABS: CREATININE 1.87 mg/dL (0.55-1.02); POTASSIUM 4.3 mmol/L (3.5-5.1); TOTAL PROTEIN 7.7 gm/dL (6.4-8.2); URIC ACID 13.1 mg/dL (2.6-6.0)
[2022-03-21 08:08] LABS: RHEUMATOID FACTOR <10.0 IU/mL (<14.0)
== END | disposition home or self-care (01) ==
LOC: LAB 15:57
PROVIDERS: ATTEND Family Medicine
DX: M25.561 Pain in right knee (principal); M79.10 Myalgia, unspecified site; M25.50 Pain in unspecified joint; Z79.899 Other long term (current) drug therapy

== ENCOUNTER → 2022-04-08 | Outpatient (CLI) | payer MEDICARE ==
[2022-04-08 13:49] LABS: BASO % 0.6 % (0.0-1.0); EOS # 0.1 10*3/uL (0.0-0.4); HEMATOCRIT 43.5 % (37.0-47.0); LYMPH # 1.3 10*3/uL (1.3-4.4); LYMPH % 18.1 % (27.0-41.0); MEAN CORPUSCULAR HGB 29.5 pg (27.0-31.0); MEAN CORPUSCULAR HGB CONC 32.4 g/dl (33.0-37.0); MEAN PLATELET VOLUME 10.2 fl (9.6-12.3); MONO # 0.8 10*3/uL (0.1-1.0); MONO % 11.8 % (3.0-9.0); NEUT # 4.7 10*3/uL (2.3-7.9); NEUT % 66.8 % (47.0-73.0); PLATELET COUNT AUTOMATED 235 10*3/uL (130-400); RED BLOOD COUNT 4.78 10*6/uL (4.10-5.10); RED CELL DISTRI WIDTH 14.8 % (0-14.5)
[2022-04-08 13:58] LABS: BILIRUBIN Negative (Negative); BLOOD Negative (Negative); CLARITY Turbid (Clear); COLOR Yellow (Yellow); GLUCOSE Negative (Negative); KETONE Negative (Negative); LEUKO ESTERASE Negative (Negative); NITRITE Negative (Negative); PH 5.5 (4.5-8.0); UROBILINOGEN 0.2 E.U./dl (0.0-1.0)
[2022-04-08 14:11] LABS: CREATININE 1.5 mg/dL (0.55-1.02); POTASSIUM 4.6 mmol/L (3.5-5.1); TOTAL PROTEIN 7.1 gm/dL (6.4-8.2); URIC ACID 11.6 mg/dL (2.6-6.0)
[2022-04-08 14:16] LABS: URINE CREATININE RANDOM 56.7 mg/dL
[2022-04-08 14:17] LABS: BACTERIA 2+
[2022-04-08 14:58] LABS: VITAMIN D, 25-HYDROXY 45.7 ng/mL (30-100)
[2022-04-09 12:07] LABS: CREATININE,URINE 54.1 mg/dL (Not Estab.); MICRO ALBUMIN/CRE RATIO <6 (0-29)
== END | disposition home or self-care (01) ==
LOC: LAB 13:23
PROVIDERS: ATTEND Internal Medicine Nephrology
DX: I13.11 Hypertensive heart and chronic kidney disease without heart failure, with stage 5 chronic kidney disease, or end stage renal disease (principal); E11.29 Type 2 diabetes mellitus with other diabetic kidney complication; E87.70 Fluid overload, unspecified; E55.9 Vitamin D deficiency, unspecified; N18.4 Chronic kidney disease, stage 4 (severe)

== ENCOUNTER → 2022-07-30 | Outpatient (CLI) | payer MEDICARE | END | disposition home or self-care (01) | LOC: RESCLI 04:30 | PROVIDERS: ATTEND Internal Medicine | DX: I25.118 Atherosclerotic heart disease of native coronary artery with other forms of angina pectoris (principal); R06.02 Shortness of breath; I48.20 Chronic atrial fibrillation, unspecified; E55.9 Vitamin D deficiency, unspecified; K92.2 Gastrointestinal hemorrhage, unspecified; E11.65 Type 2 diabetes mellitus with hyperglycemia; I50.22 Chronic systolic (congestive) heart failure; Z90.49 Acquired absence of other specified parts of digestive tract; N18.9 Chronic kidney disease, unspecified; Z90.710 Acquired absence of both cervix and uterus; Z90.12 Acquired absence of left breast and nipple; Z98.890 Other specified postprocedural states; Z88.8 Allergy status to other drugs, medicaments and biological substances; Z88.5 Allergy status to narcotic agent; Z79.82 Long term (current) use of aspirin; Z79.899 Other long term (current) drug therapy ==

== ENCOUNTER → 2022-09-08 | Outpatient (CLI) | payer MEDICARE ==
[2022-09-08 12:13] LABS: HEMATOCRIT 42.8 % (37.0-47.0); MEAN CELL VOLUME 89.7 fl (81.0-99.0); MEAN CORPUSCULAR HGB 29.4 pg (27.0-31.0); MEAN CORPUSCULAR HGB CONC 32.7 g/dl (33.0-37.0); MEAN PLATELET VOLUME 10.3 fl (9.6-12.3); RED BLOOD COUNT 4.77 10*6/uL (4.10-5.10); RED CELL DISTRI WIDTH 14.7 % (0-14.5); WHITE BLOOD COUNT 8.9 10*3/uL (4.8-10.8)
[2022-09-08 12:31] LABS: TOTAL PROTEIN 7.1 gm/dL (6.0-8.0)
[2022-09-08 13:10] LABS: VITAMIN D, 25-HYDROXY 70.4 ng/mL (30-100)
== END | disposition home or self-care (01) ==
LOC: LAB 11:46
PROVIDERS: ATTEND Family Medicine
DX: E78.00 Pure hypercholesterolemia, unspecified (principal); E11.9 Type 2 diabetes mellitus without complications; I10 Essential (primary) hypertension; E55.9 Vitamin D deficiency, unspecified; R53.83 Other fatigue; E87.6 Hypokalemia

== ENCOUNTER → 2022-10-29 | Outpatient (CLI) | payer MEDICARE ==
[2022-10-29 10:20] LABS: BASO % 0.5 % (0.0-1.0); EOS # 0.4 10*3/uL (0.0-0.4); EOS % 4.8 % (1.0-4.0); LYMPH # 1.3 10*3/uL (1.3-4.4); LYMPH % 14.7 % (27.0-41.0); MEAN CELL VOLUME 88.8 fl (81.0-99.0); MEAN CORPUSCULAR HGB 27.8 pg (27.0-31.0); MEAN CORPUSCULAR HGB CONC 31.3 g/dl (33.0-37.0); MEAN PLATELET VOLUME 10.1 fl (9.6-12.3); MONO # 0.7 10*3/uL (0.1-1.0); MONO % 8.2 % (3.0-9.0); NEUT # 6.3 10*3/uL (2.3-7.9); NEUT % 71.2 % (47.0-73.0); PLATELET COUNT AUTOMATED 262 10*3/uL (130-400); RED BLOOD COUNT 5.07 10*6/uL (4.10-5.10); RED CELL DISTRI WIDTH 14.5 % (0-14.5); WHITE BLOOD COUNT 8.8 10*3/uL (4.8-10.8)
[2022-10-29 10:26] LABS: BILIRUBIN Negative (Negative); BLOOD Negative (Negative); CLARITY Clear (Clear); COLOR Yellow (Yellow); GLUCOSE Negative (Negative); KETONE Negative (Negative); LEUKO ESTERASE Negative (Negative); NITRITE Negative (Negative); PH 5.5 (4.5-8.0); UROBILINOGEN 0.2 E.U./dl (0.0-1.0)
[2022-10-29 10:39] LABS: URINE CREATININE RANDOM 81.21 mg/dL
[2022-10-29 10:44] LABS: POTASSIUM 4.2 mmol/L (3.4-5.1); TOTAL PROTEIN 7.2 gm/dL (6.0-8.0); URIC ACID 12.2 mg/dL (3.1-7.8)
[2022-10-29 11:14] LABS: VITAMIN D, 25-HYDROXY 70.2 ng/mL (30-100)
[2022-10-29 13:02] LABS: BACTERIA 3+; EPITHELIAL CELLS 16-20
== END | disposition home or self-care (01) ==
LOC: LAB 09:16
PROVIDERS: ATTEND Internal Medicine Nephrology
DX: N18.32 Chronic kidney disease, stage 3b (principal); N25.81 Secondary hyperparathyroidism of renal origin; D63.1 Anemia in chronic kidney disease; E78.5 Hyperlipidemia, unspecified; E55.9 Vitamin D deficiency, unspecified; Z79.899 Other long term (current) drug therapy

== ENCOUNTER → 2022-11-25 | Outpatient (CLI) | payer MEDICARE ==
[2022-11-25 10:30] LABS: BILIRUBIN Negative (Negative); BLOOD Negative (Negative); CLARITY Clear (Clear); COLOR Yellow (Yellow); GLUCOSE Negative (Negative); KETONE Negative (Negative); LEUKO ESTERASE Negative (Negative); NITRITE Negative (Negative); PH 5.5 (4.5-8.0); UROBILINOGEN 0.2 E.U./dl (0.0-1.0)
[2022-11-25 10:30] LABS: BASO # 0.1 10*3/uL (0.0-0.1); BASO % 0.6 % (0.0-1.0); EOS # 0.2 10*3/uL (0.0-0.4); EOS % 2.3 % (1.0-4.0); HEMATOCRIT 45.9 % (37.0-47.0); LYMPH # 1.3 10*3/uL (1.3-4.4); LYMPH % 15.1 % (27.0-41.0); MEAN CELL VOLUME 87.3 fl (81.0-99.0); MEAN CORPUSCULAR HGB 27.9 pg (27.0-31.0); MEAN PLATELET VOLUME 10.3 fl (9.6-12.3); MONO # 0.8 10*3/uL (0.1-1.0); MONO % 8.9 % (3.0-9.0); NEUT # 6.3 10*3/uL (2.3-7.9); NEUT % 72.5 % (47.0-73.0); PLATELET COUNT AUTOMATED 248 10*3/uL (130-400); RED BLOOD COUNT 5.26 10*6/uL (4.10-5.10); RED CELL DISTRI WIDTH 15.7 % (0-14.5); WHITE BLOOD COUNT 8.7 10*3/uL (4.8-10.8)
[2022-11-25 10:36] LABS: URINE CREATININE RANDOM 101.51 mg/dL
[2022-11-25 10:56] LABS: BACTERIA 1+; RBC 0-2 rbc/hpf (0-2)
[2022-11-25 11:14] LABS: POTASSIUM 3.9 mmol/L (3.4-5.1); TOTAL PROTEIN 7.7 gm/dL (6.0-8.0); URIC ACID 12.5 mg/dL (3.1-7.8)
[2022-11-25 11:16] LABS: VITAMIN D, 25-HYDROXY 71.3 ng/mL (30-100)
== END ==
LOC: LAB 09:54
PROVIDERS: ATTEND Nurse Practitioner Family
DX: N18.32 Chronic kidney disease, stage 3b (principal); D63.1 Anemia in chronic kidney disease; I50.9 Heart failure, unspecified; R80.9 Proteinuria, unspecified; I51.7 Cardiomegaly; N25.81 Secondary hyperparathyroidism of renal origin; E78.5 Hyperlipidemia, unspecified; E55.9 Vitamin D deficiency, unspecified; R60.1 Generalized edema

== ENCOUNTER 2022-12-20 13:35 | Emergency (ER) | payer MEDICARE ==
[~2022-12-20] VITALS: Ht 149.8 cm; Wt 75.7 kg
== END 2022-12-20 15:32 | disposition home or self-care (01) ==
LOC: ED 13:35
DX: M19.90 Unspecified osteoarthritis, unspecified site (principal); M25.562 Pain in left knee; M25.512 Pain in left shoulder; F32.A Depression, unspecified; I25.10 Atherosclerotic heart disease of native coronary artery without angina pectoris; I50.9 Heart failure, unspecified; E11.9 Type 2 diabetes mellitus without complications; Z88.6 Allergy status to analgesic agent; Z88.5 Allergy status to narcotic agent; Z88.8 Allergy status to other drugs, medicaments and biological substances; Z90.49 Acquired absence of other specified parts of digestive tract; Z90.710 Acquired absence of both cervix and uterus; Z90.12 Acquired absence of left breast and nipple; Z98.890 Other specified postprocedural states

== ENCOUNTER → 2022-12-25 | Outpatient (CLI) | payer MEDICARE | END | disposition home or self-care (01) | LOC: US 13:26 | PROVIDERS: ATTEND Family Medicine | DX: I82.402 Acute embolism and thrombosis of unspecified deep veins of left lower extremity (principal); R60.9 Edema, unspecified; R20.0 Anesthesia of skin; R20.2 Paresthesia of skin; M79.662 Pain in left lower leg ==

== ENCOUNTER 2023-02-04 22:12 | Emergency (ER) | payer MEDICARE ==
[~2023-02-04] VITALS: Ht 149.8 cm; Wt 82.6 kg
[2023-02-04] MEDS ORDERED: LANTUS SOL100 UNIT/1 SC (23:11)
[2023-02-04 23:36] LABS: BASO % 0.3 % (0.0-1.0); EOS # 0.1 10*3/uL (0.0-0.4); EOS % 0.9 % (1.0-4.0); HEMATOCRIT 38.7 % (37.0-47.0); LYMPH # 0.9 10*3/uL (1.3-4.4); LYMPH % 10.5 % (27.0-41.0); MEAN CELL VOLUME 88.2 fl (81.0-99.0); MEAN CORPUSCULAR HGB 28.2 pg (27.0-31.0); MONO # 0.5 10*3/uL (0.1-1.0); MONO % 6.2 % (3.0-9.0); NEUT % 81.5 % (47.0-73.0); PLATELET COUNT AUTOMATED 265 10*3/uL (130-400); RED BLOOD COUNT 4.39 10*6/uL (4.10-5.10); RED CELL DISTRI WIDTH 15.9 % (0-14.5); WHITE BLOOD COUNT 8.6 10*3/uL (4.8-10.8)
[2023-02-04 23:57] LABS: ALKALINE PHOSPHATASE 116 U/L (46-116); BUN 22 mg/dl (9-23); CHLORIDE 101 mmol/L (98-107); POTASSIUM 4.4 mmol/L (3.4-5.1); TOTAL PROTEIN 6.8 gm/dL (6.0-8.0)
[2023-02-04 23:59] LABS: SGPT/ALT < 7 U/L (10-49)
== END 2023-02-05 05:16 | disposition home or self-care (01) ==
LOC: ED 22:12
PROVIDERS: Emergency Medicine
DX: S09.90XA Unspecified injury of head, initial encounter (principal); E11.649 Type 2 diabetes mellitus with hypoglycemia without coma; Z79.4 Long term (current) use of insulin; I48.91 Unspecified atrial fibrillation; I25.10 Atherosclerotic heart disease of native coronary artery without angina pectoris; E11.22 Type 2 diabetes mellitus with diabetic chronic kidney disease; I13.0 Hypertensive heart and chronic kidney disease with heart failure and stage 1 through stage 4 chronic kidney disease, or unspecified chronic kidney disease; N18.9 Chronic kidney disease, unspecified; I50.9 Heart failure, unspecified; N17.0 Acute kidney failure with tubular necrosis; J44.9 Chronic obstructive pulmonary disease, unspecified; E83.41 Hypermagnesemia; E87.6 Hypokalemia; E87.1 Hypo-osmolality and hyponatremia; F32.A Depression, unspecified; E11.9 Type 2 diabetes mellitus without complications; M19.90 Unspecified osteoarthritis, unspecified site; Z86.73 Personal history of transient ischemic attack (TIA), and cerebral infarction without residual deficits; Z88.6 Allergy status to analgesic agent; Z88.5 Allergy status to narcotic agent; Z88.8 Allergy status to other drugs, medicaments and biological substances; W01.190A Fall on same level from slipping, tripping and stumbling with subsequent striking against furniture, initial encounter; Y93.89 Activity, other specified; Y92.000 Kitchen of unspecified non-institutional (private) residence as the place of occurrence of the external cause; Y99.8 Other external cause status

== ENCOUNTER 2023-02-09 15:28 | Emergency (ER) | payer MEDICARE ==
[~2023-02-09] VITALS: Wt 76.7 kg
== END 2023-02-09 20:49 | disposition home or self-care (01) ==
LOC: ED 15:28
DX: M17.11 Unilateral primary osteoarthritis, right knee (principal); R11.0 Nausea; Z88.8 Allergy status to other drugs, medicaments and biological substances; Z79.899 Other long term (current) drug therapy; Z79.4 Long term (current) use of insulin; Z90.49 Acquired absence of other specified parts of digestive tract; Z90.711 Acquired absence of uterus with remaining cervical stump; Z95.0 Presence of cardiac pacemaker

== ENCOUNTER → 2023-06-09 | Outpatient (CLI) | payer MEDICARE ==
[2023-06-09 11:35] LABS: BASO # 0.1 10*3/uL (0.0-0.1); BASO % 0.8 % (0.0-1.0); BILIRUBIN Negative (Negative); BLOOD Negative (Negative); CLARITY Clear (Clear); COLOR Yellow (Yellow); EOS # 0.2 10*3/uL (0.0-0.4); EOS % 3.2 % (1.0-4.0); GLUCOSE Negative (Negative); HEMATOCRIT 45.5 % (37.0-47.0); KETONE Negative (Negative); LEUKO ESTERASE Trace (Negative); MEAN CELL VOLUME 90.6 fl (81.0-99.0); MEAN CORPUSCULAR HGB 28.3 pg (27.0-31.0); MEAN CORPUSCULAR HGB CONC 31.2 g/dl (33.0-37.0); MEAN PLATELET VOLUME 10.4 fl (9.6-12.3); MONO # 0.6 10*3/uL (0.1-1.0); MONO % 9.4 % (3.0-9.0); NEUT # 4.5 10*3/uL (2.3-7.9); NEUT % 70.1 % (47.0-73.0); NITRITE Negative (Negative); PH 5.5 (4.5-8.0); PLATELET COUNT AUTOMATED 248 10*3/uL (130-400); RED BLOOD COUNT 5.02 10*6/uL (4.10-5.10); RED CELL DISTRI WIDTH 14.5 % (0-14.5); SPECIFIC GRAVITY 1.015 (1.001-1.030); UROBILINOGEN 0.2 E.U./dl (0.0-1.0); WHITE BLOOD COUNT 6.5 10*3/uL (4.8-10.8)
[2023-06-09 11:42] LABS: URINE CREATININE RANDOM 64.75 mg/dL
[2023-06-09 12:02] LABS: POTASSIUM 4.3 mmol/L (3.4-5.1); TOTAL PROTEIN 7.6 gm/dL (6.0-8.0); URIC ACID 12.1 mg/dL (3.1-7.8)
[2023-06-09 12:07] LABS: VITAMIN D, 25-HYDROXY 68.8 ng/mL (30-100)
[2023-06-09 12:10] LABS: BACTERIA TRACE
== END | disposition home or self-care (01) ==
LOC: LAB 10:45
PROVIDERS: ATTEND Nurse Practitioner Family
DX: I13.0 Hypertensive heart and chronic kidney disease with heart failure and stage 1 through stage 4 chronic kidney disease, or unspecified chronic kidney disease (principal); E11.22 Type 2 diabetes mellitus with diabetic chronic kidney disease; N18.32 Chronic kidney disease, stage 3b; I50.32 Chronic diastolic (congestive) heart failure; D63.1 Anemia in chronic kidney disease; E11.65 Type 2 diabetes mellitus with hyperglycemia; I34.0 Nonrheumatic mitral (valve) insufficiency; I25.10 Atherosclerotic heart disease of native coronary artery without angina pectoris; E59 Dietary selenium deficiency; R06.02 Shortness of breath; E55.9 Vitamin D deficiency, unspecified; Z95.0 Presence of cardiac pacemaker; R80.9 Proteinuria, unspecified